=== PATIENT | female | born 1995 | race Caucasian/White ===

== ENCOUNTER 2016-10-01 17:08 | Emergency (ER) | payer OTHER ==
[2016-10-01 17:38] VITALS: BP 111/87; PULSE 101; TEMP 98.5; BMI 21.9
[2016-10-01] MEDS ORDERED: DEXAMETHASONE SOD PHOSPHATE 10 MG/1 ML VIAL IM ONE (19:13)
--- NOTE | 2016-10-01 19:25 | PDOC ---
History of Present Illness - General Chief Complaint: Shortness of Breath Stated Complaint: Shortness of Breath Time Seen by Provider: 10/01/16 19:01 History Source: Patient Exam Limitations: No Limitations - History of Present Illness Initial Comments: 10/01/16 19:20 CC REDNESS AND SWELLING TO UVULA X 1 DAY; POST ENDOSCOPY X 1 DAY 10/01/16 21:13 Timing/Duration: reports: 1-3 hours, 4-6 hours Severity: Yes: mild Presenting Symptoms: No: fever, red eyes, ear pain, runny nose Past History - Past History Allergies/Adverse Reactions: Allergies No Known Allergies Allergy (Verified 10/01/16 17:35) - Social History Smoking Status: Never smoked Review of Systems - Review of Systems Constitutional: Yes: Chills. No: Fever, Malaise HEENTM: Yes: Symptoms Reported, Throat Pain Respiratory: Yes: Cough. No: Symptoms reported Cardiac (ROS): No: Symptoms Reported ABD/GI: No: Symptoms Reported Integumentary: Yes: Other ( small laceration) *Physical Exam - Vital Signs Last Vital Signs Temp Pulse Resp BP Pulse Ox 98.5 F 101 H 18 111/87 100 10/01/16 17:36 10/01/16 17:36 10/01/16 17:36 10/01/16 17:36 10/01/16 17:36 - Physical Exam General Appearance: Yes: Appropriately Dressed. No: Apparent Distress HEENT: positive: TMs Normal, Other (UVULA SWOLLEN WITH WHIT MUCOUS ON TIP). negative: Pharynx Normal, Rhinorrhea Neck: positive: Supple. negative: Tender, Rigid, Lymphadenopathy (R), Lymphadenopathy (L) Respiratory/Chest: positive: Lungs Clear Cardiovascular: positive: Regular Rhythm, Regular Rate Extremity: positive: Other (>5 cm laceration to posterior parietal area scalp, no bone deformity) Medical Decision Making - Medical Decision Making 10/01/16 21:16 WILL TREAT WITH DECADRON AND AUGMENTIN POST *DC/Admit/Observation/Transfer Diagnosis at time of Disposition: Uvulitis - Discharge Dispostion Disposition: HOME Condition at time of disposition: Stable Admit: No - Patient Instructions Additional Instructions: GARGLE WITH WARM WATER; PLEASE CONTACT MD WHO DID ENDOSCOPY FOR FOLLOW UP ON INCIDENT
[2016-10-01] MEDS ORDERED: DEXAMETHASONE SOD PHOSPHATE 10 MG/1 ML VIAL ONE (21:01)
== END 2016-10-01 21:36 | disposition home or self-care (01) ==
LOC: JERFT 17:08 → JER 17:08 → JERFT 21:36
PROC: 3E023GC Introduction of Other Therapeutic Substance into Muscle, Percutaneous Approach (ICD-10-PCS; principal; 2016-10-01)
DX: K12.2 Cellulitis and abscess of mouth (principal)
CPT/HCPCS: 84703; 87070; 87430; 96372; 99281-25

== ENCOUNTER → 2017-06-03 | Day surgery (SDC) | payer OTHER ==
--- NOTE | 2017-06-04 17:12 | PATH ---
Cytology Non-Gynecological Report Patient Name: TAJ COLON [facility]. Rec. #: [id number] /Age/Gender: 1995 (Age: 22) / F Account: [id number] Location: RADIOLOGY [facility] Taken: 06/03/2017 Received: 06/03/2017 Reported: 06/04/2017 Physicians: Tegan Garza M.D. Specimen(s) Received LEFT THYROID FNA Clinical History Left thyroid nodule, 2.06 x 1.38 x 1.14 cm Final Diagnosis THYROID, LEFT, FINE NEEDLE ASPIRATION: UNSATISFACTORY FOR EVALUATION BETHESDA CLASS I: CYSTIC THYROID LESION WITH MACROPHAGES MACROPHAGES AND SCANT THIN COLLOID PRESENT. Electronically Signed Joana Lomeli M.D. Gross Description Received are eight direct smears, four of which are air-dried and Diff-Quik stained, and four of which are alcohol fixed and Pap stained. Also received is 20 ml of brown colored fluid in formalin from which one cellblock is prepared.
== END | disposition home or self-care (01) ==
LOC: JRADIR 08:44
PROVIDERS: ATTEND Specialist
PROC: 0G9G3ZX Drainage of Left Thyroid Gland Lobe, Percutaneous Approach, Diagnostic (ICD-10-PCS; principal; 2017-06-03)
DX: E04.1 Nontoxic single thyroid nodule (principal)
CPT/HCPCS: 76942; 88173; 88305-TC

== ENCOUNTER 2017-06-26 12:23 | Emergency (ER) | payer OTHER ==
[2017-06-26 12:32] VITALS: BP 140/95; PULSE 104; TEMP 98.4; BMI 42.3
--- NOTE | 2017-06-26 12:59 | PDOC ---
History of Present Illness - General Chief Complaint: Asthma Stated Complaint: ASTHMA Time Seen by Provider: 06/26/17 12:44 History Source: Patient Exam Limitations: No Limitations Past History - Travel Traveled outside of the country in the last 30 days: No Close contact w/someone who was outside of country & ill: No - Past Medical History Allergies/Adverse Reactions: Allergies Allergy/AdvReac Type Severity Reaction Status Date / Time No Known Allergies Allergy Verified 06/26/17 12:27 Home Medications: Ambulatory Orders Albuterol 0.083% Nebulizer Cynthia [Ventolin 0.083% Nebulizer Soln -] 1 neb NEB Q4H #20 vial 06/26/17 predniSONE [Deltasone -] 40 mg PO DAILY #8 tablet 06/26/17 Asthma: Yes COPD: No Thyroid Disease: Yes (NODULE/BIOPSY) - Suicide/Smoking/Psychosocial Hx Smoking History: Never smoked Information on smoking cessation initiated: No Hx Alcohol Use: No Drug/Substance Use Hx: No Substance Use Type: None Review of Systems - Review of Systems Able to Perform ROS?: Yes Comments:: 06/26/17 12:55 CONSTITUTIONAL: Absent: fever, chills, diaphoresis, generalized weakness, malaise, loss of appetite HEENT: Absent: rhinorrhea, nasal congestion, throat pain, throat swelling, difficulty swallowing, mouth swelling, ear pain, eye pain, visual Changes CARDIOVASCULAR: Absent: chest pain, loss of consciousness, palpitations, irregular heart rate, peripheral edema RESPIRATORY: Present: cough, wheezing Absent: shortness of breath, dyspnea with exertion, orthopnea, stridor, hemoptysis GASTROINTESTINAL: Absent: abdominal pain, abdominal distension, nausea, vomiting, diarrhea, constipation, melena, hematochezia GENITOURINARY: Absent: dysuria, frequency, urgency, hesitancy, hematuria, flank pain, genital pain MUSCULOSKELETAL: Absent: myalgia, arthralgia, joint swelling SKIN: Absent: rash, itching, pallor HEMATOLOGIC/IMMUNOLOGIC: Absent: easy bleeding, easy bruising, lymphadenopathy, frequent infections ENDOCRINE: Absent: unexplained weight gain, unexplained weight loss, heat intolerance, cold intolerance NEUROLOGIC: Absent: headache, focal weakness or paresthesias, dizziness, unsteady gait, seizure, mental status changes, bladder or bowel incontinence PSYCHIATRIC: Absent: anxiety, depression, suicidal or homicidal ideation, hallucinations. Is the patient limited Urdu proficient: No *Physical Exam - Vital Signs Last Vital Signs Temp Pulse Resp BP Pulse Ox 98.4 F 104 H 18 140/95 100 06/26/17 12:28 06/26/17 12:28 06/26/17 12:28 06/26/17 12:28 06/26/17 12:28 - Physical Exam Comments: 06/26/17 12:59 GENERAL: Well developed, well nourished. Awake and alert. No acute distress. HEENT: Normocephalic, atraumatic. PERRLA, EOMI. No conjunctival pallor. Sclera are non- icteric. Moist mucous membranes. Oropharynx is clear. NECK: Supple. Full ROM. No JVD. Carotid pulses 2+ and symmetric, without bruits. No thyromegaly. No lymphadenopathy. CARDIOVASCULAR: Regular rate and rhythm. No murmurs, rubs, or gallops. Distal pulses are 2+ and symmetric. PULMONARY: No evidence of respiratory distress. Lungs clear to auscultation bilaterally. No wheezing, rales or rhonchi. ABDOMINAL: Soft. Non-tender. Non-distended. No rebound or guarding. No organomegaly. Normoactive bowel sounds. MUSCULOSKELETAL Normal range of motion at all joints. No bony deformities or tenderness. No CVA tenderness. EXTREMITIES: No cyanosis. No clubbing. No edema. No calf tenderness. SKIN: Warm and dry. Normal capillary refill. No rashes. No jaundice. NEUROLOGICAL: Alert, awake, appropriate. Cranial nerves 2-12 intact. No deficits to light touch and temperature in face, upper extremities and lower extremities. No motor deficits in the in face, upper extremities and lower extremities. Normoreflexic in the upper and lower extremities. Normal speech. Toes are down- going bilaterally. Gait is normal without ataxia. PSYCHIATRIC: Cooperative. Good eye contact. Appropriate mood and affect. *DC/Admit/Observation/Transfer Diagnosis at time of Disposition: Bronchitis - Discharge Dispostion Disposition: HOME Condition at time of disposition: Stable Admit: No - Prescriptions Prescriptions: Albuterol 0.083% Nebulizer Cynthia [Ventolin 0.083% Nebulizer Soln -] 1 neb NEB Q4H #20 vial predniSONE [Deltasone -] 40 mg PO DAILY #8 tablet - Referrals Referrals: Demetra,Ammir, MD [Primary Care Provider] - - Patient Instructions Printed Discharge Instructions: DI for Acute Bronchitis Additional Instructions: You have bronchitis. Please continue taking her antibiotics as prescribed by your doctor. Please take the prednisone as directed on the package for the next 4 days. Please use your albuterol every 4 hours to the nebulizer as needed for difficulty breathing You may use your nasal spray twice a day to help with her earaches and dizziness. Please follow-up with your doctor this week. Return to the emergency department if you have increased difficulty breathing, shortness of breath, or have any changes in your symptoms. - Post Discharge Activity
[2017-06-26] MEDS ORDERED: predniSONE 20 MG TABLET (UD) PO ONE (13:04)
[2017-06-26] MEDS ORDERED: predniSONE 20 MG TABLET (UD) ONE (13:06)
[2017-06-26] MEDS ORDERED: ALBUTEROL SO4 2.5/IPRATROPIUM 0.5 INH SOL 3 ML VIAL.NEB. NEB ONE (13:06)
[2017-06-26] MEDS ORDERED: ONDANSETRON *ODT* 4 MG TABLET SL ONE (13:24)
[2017-06-26] MEDS ORDERED: ONDANSETRON *ODT* 4 MG TABLET ONE (13:27)
[2017-06-26] MEDS: ALBUTEROL SO4 2.5/IPRATROPIUM 0.5 INH SOL 3 ML VIAL.NEB. NEB SCH ×2 (13:28→13:37)
== END 2017-06-26 15:37 | disposition home or self-care (01) ==
LOC: JERFT 12:23
PROC: 3E0F7GC Introduction of Other Therapeutic Substance into Respiratory Tract, Via Natural or Artificial Opening (ICD-10-PCS; principal; 2017-06-26)
DX: J40 Bronchitis, not specified as acute or chronic (principal); E07.9 Disorder of thyroid, unspecified
CPT/HCPCS: 99281-25; J7620; Q0162

== ENCOUNTER 2017-12-19 17:22 | Emergency (ER) | payer OTHER ==
[2017-12-19 17:34] VITALS: BMI 42.4
--- NOTE | 2017-12-19 17:35 | PDOC ---
Rapid Medical Evaluation Time Seen by Provider: 12/19/17 17:30 Medical Evaluation: Allergies Allergy/AdvReac Type Severity Reaction Status Date / Time No Known Allergies Allergy Verified 06/26/17 12:27 12/19/17 17:30 Pt presents to the ED for one month of worsening abdominal pain, nausea, and vomiting. Pain is mostly in the LLQ, now radiating to the RLQ. States that she has not had a bowel movement in 2 weeks. States she vomits after eating. Exam: NAD, ambulatory, TTP of the LLQ Orders: Labs, urine, IV Pt to proceed to ED for further evaluation Discharge Disposition - Diagnosis Abdominal pain Qualifiers: Abdominal location: left lower quadrant Qualified Code(s): R10.32 - Left lower quadrant pain - Referrals - Patient Instructions - Post Discharge Activity
[2017-12-19 18:34] LABS: BASO % 0.2 % (0-2.0); EOS % 0.7 % (0-4.5); HEMATOCRIT 41.4 % (32.4-45.2); HEMOGLOBIN 13.9 GM/dL (10.7-15.3); MCH 29.4 pg (25.7-33.7); MCHC 33.5 g/dl (32.0-36.0); MEAN CELL VOLUME 87.7 fl (80-96); MEAN PLT VOLUME 8.9 fl (7.5-11.1); MONO % 7.6 % (3.8-10.2); NEUT % 56.5 % (42.8-82.8); PLATELET COUNT 229 K/MM3 (134-434); RBC 4.72 M/mm3 (3.60-5.2); RDW 13.7 % (11.6-15.6); WHITE BLOOD COUNT 7.5 K/mm3 (4.0-10.0)
[2017-12-19 18:46] LABS: INR 1.15 (0.83-1.09); PROTHROMBIN TIME (PATIENT) 13.6 SEC (9.7-13.0)
--- NOTE | 2017-12-19 18:47 | PDOC ---
History of Present Illness - General Chief Complaint: Pain, Acute Stated Complaint: NAUSEA Time Seen by Provider: 12/19/17 17:30 History Source: Patient Exam Limitations: No Limitations - History of Present Illness Initial Comments: 12/19/17 18:39 Pt is a 22yo f with PMH of asthma presenting to ED with complaints of abdominal pain [id number] and no bowel movements [id number]. Pt also reported not passing gas. Pain is LLQ radiates to RLQ intermittent but getting worse, sharp, 9/10, not alleviated or aggrevated. Associated with nausea and occasional vomiting (nbnb) . She states that her last bm had blood. She went to a GI doctor yesterday and was told she has internal hemarrhoids and IBS and given Linzess but insurance would not cover it. She had an elective around 1.5 years ago. No abdominal surgeries. LMP 1 month ago. Denies fever, chills, sob, chest pain, urinary symptoms, headache. PMD: Demetra GI: Kozicky PMH: asthma PSH: none Meds: none Social: denies Allergies: nkda Past History - Past Medical History Allergies/Adverse Reactions: Allergies Allergy/AdvReac Type Severity Reaction Status Date / Time No Known Allergies Allergy Verified 12/19/17 17:31 Home Medications: Ambulatory Orders NK [No Known Home Medication] 12/19/17 Asthma: Yes COPD: No Thyroid Disease: Yes (NODULE/BIOPSY) - Suicide/Smoking/Psychosocial Hx Smoking History: Never smoked Hx Alcohol Use: No Drug/Substance Use Hx: No Substance Use Type: None Review of Systems - Review of Systems Able to Perform ROS?: Yes Constitutional: No: Chills, Loss of Appetite HEENTM: No: Symptoms Reported Respiratory: No: Cough, Shortness of Breath Cardiac (ROS): Yes: Lightheadedness. No: Chest Pain, Syncope ABD/GI: Yes: Abdominal Distended, Constipated, Nausea, Vomiting, Abdominal cramping. No: Diarrhea, Rectal Bleeding : No: Symptoms Reported Musculoskeletal: No: Symptoms Reported Integumentary: No: Symptoms Reported Neurological: No: Symptoms reported *Physical Exam - Vital Signs Last Vital Signs Temp Pulse Resp BP Pulse Ox 98 F 104 H 18 138/85 100 12/19/17 17:31 12/19/17 17:31 12/19/17 17:31 12/19/17 17:31 12/19/17 17:31 - Physical Exam General Appearance: Yes: Appropriately Dressed, Obese. No: Apparent Distress HEENT: positive: EOMI, CAMILA, Normal ENT Inspection Neck: positive: Trachea midline. negative: Lymphadenopathy (R), Lymphadenopathy (L) Respiratory/Chest: positive: Lungs Clear, Normal Breath Sounds. negative: Crackles, Rales, Rhonchi, Stridor, Wheezing Cardiovascular: positive: Regular Rhythm, Tachycardia. negative: S1, S2, Edema , JVD Vascular Pulses: Carotid (R): 2+, Carotid (L): 2+, Dorsalis-Pedis (R): 2+, Doralis-Pedis (L): 2+ Gastrointestinal/Abdominal: positive: Normal Bowel Sounds, Tender (diffuse, greatest in LLQ. negative psoas sign. ), Soft, Distended. negative: Guarding, Rebound Musculoskeletal: negative: CVA Tenderness Extremity: positive: Normal Capillary Refill. negative: Pedal Edema, Swelling Integumentary: positive: Normal Color, Dry, Warm Neurologic: positive: metal cleaner II-XII NML intact, Fully Oriented, Alert, Normal Mood/ Affect, Normal Response, Motor Strength 5/5 ED Treatment Course - LABORATORY CBC & Chemistry Diagram: 12/19/17 18:26 12/19/17 18:08 Medical Decision Making - Medical Decision Making 12/19/17 19:33 Pt is a 22yo f with PMH of asthma presenting to ED with complaints of abdominal pain [id number] and no bowel movements [id number]. Vitals: tachycardia, otherwise wnl PE: diffuse abdominal tenderness in all qudrants, greatest in LLQ. Pt appeared comfortabe and well. Pt passed gas in ED. DDx: sbo, constipation, colitis Low suspicion for colitis or infectious process due to constipation, no diarrhea , no fevers. Low suspicion for ovarian causes due to lack of complaints, symptoms have been going on for 1 month. Low suspicion for SBO given pt had passed gas in ED and saw GI yesterday. CBC, cmp, lipase, ua and upreg ordered by triage. If upreg negative, will order abdomen xray. xray ordered. Pt signed out to Dr. Palomino *DC/Admit/Observation/Transfer Diagnosis at time of Disposition: Abdominal pain Qualifiers: Abdominal location: left lower quadrant Qualified Code(s): R10.32 - Left lower quadrant pain Constipation Qualifiers: Constipation type: unspecified constipation type Qualified Code(s): K59.00 - Constipation, unspecified - Referrals Referrals: Nona Mccrary MD [Primary Care Provider] - - Patient Instructions - Post Discharge Activity
--- NOTE | 2017-12-19 18:47 | PDOC ---
Attending Attestation - HPI HPI: 12/19/17 19:19 "The patient is a 22-year-old female with past medical history significant for asthma and prior hx of constipation presents to the emergency department with constipation and abdominal pain. The patient presents with a month of LLQ abdominal pain, nausea, and fatigue. The patient reports associated concern of 2 weeks of constipation, states it feels like its stuck there. The patient reports 3-4 weeks prior she had an episode of blood in the stool. The patient reports following up with a GI doctor in the past, who diagnosed the patient with IBS. The patient reports in the past she was diagnosed with internal hemorrhoid. Denies fever, chills, cough, chest pain, shortness of breath, melena, urinary symptoms. Allergies: NKA Social history: No past or present use of tobacco, alcohol or recreational drugs. Surgical history: Endoscopy PCP: Dr. Mccrary. " - Medical Decision Making 12/19/17 19:19 Documentation prepared by Mis Manuel, acting as medical planner for Pavel Voss MD. <Mis Manuel - Last Filed: 12/19/17 19:19> - Medical Decision Making 12/19/17 21:48 Received signout on the patient and she appears well. She understands that her left sided abd pain is due to the gas in her bowel. We discussed the importance of exercise in helping treat constipation. She will also drink more water and eat more vegetables and probiotic. Pt has normal labs and normal exam. She will be discharged after IV hydration. <Kajal Lima - Last Filed: 12/19/17 21:48> - Resident Resident Name: Isidra Gibbs - ED Attending Attestation I have performed the following: I have examined & evaluated the patient, The case was reviewed & discussed with the resident, I agree w/resident's findings & plan, Exceptions are as noted - Physicial Exam PE: 12/19/17 19:24 on exam: general: no acute distress abd: abd soft, mild L abd tenderness, no CVA tenderness - Medical Decision Making 12/19/17 18:41 22y F hx of asthma oresents with 1 month of LLQ pain that radiates to the right , intermittent, sharp, associated with nausea and occasional vomiting, notes she is eating but not having good bm and hasnt had too much gas (did pass katie here in the ED though). was dx with IBS by GI and was started on linzenz but pt was unable to afford it. suspect constipation due to her well appearance will ck basic labs abd xray will reassess, anticipate fu with GI 12/19/17 19:39 case signed out to dr. lima and evening team to fu and reassess A portion of this note was documented by scribe services under my direction. I have reviewed the details of the note, within reason, and agree with the documentation with the following case summary and management plan written by me <Pavel Voss - Last Filed: 12/20/17 10:07>
[2017-12-19 19:03] LABS: ALBUMIN 3.6 g/dl (3.4-5.0); ALK PHOS 98 U/L (45-117); ANION GAP 9 MMOL/L (8-16); BILIRUBIN,TOTAL 0.4 mg/dL (0.2-1); BLOOD UREA NITROGEN 8 mg/dL (7-18); CALCIUM 8.5 mg/dL (8.5-10.1); CHLORIDE 109 mmol/L (98-107); CO2 24 mmol/L (21-32); CREATININE 0.6 mg/dL (0.55-1.3); GLUCOSE,RANDOM 73 mg/dL (74-106); POTASSIUM 3.9 mmol/L (3.5-5.1); SGOT/AST 14 U/L (15-37); SGPT/ALT 20 U/L (13-61); SODIUM 141 mmol/L (136-145); TOT PROT 7.1 g/dl (6.4-8.2)
[2017-12-19 19:42] VITALS: BP 128/74; PULSE 96; TEMP 97.7
--- NOTE | 2017-12-19 20:16 | PDOC ---
*Physical Exam - Vital Signs Last Vital Signs Temp Pulse Resp BP Pulse Ox 97.7 F 96 H 18 128/74 100 12/19/17 19:34 12/19/17 19:34 12/19/17 17:31 12/19/17 19:34 12/19/17 17:31 <Kajal Sears - Last Filed: 12/19/17 21:21> - Vital Signs Last Vital Signs Temp Pulse Resp BP Pulse Ox 97.7 F 96 H 18 128/74 100 12/19/17 19:34 12/19/17 19:34 12/19/17 17:31 12/19/17 19:34 12/19/17 17:31 - Physical Exam General Appearance: Yes: Appropriately Dressed HEENT: positive: EOMI Neck: positive: Normal Thyroid Respiratory/Chest: positive: Lungs Clear, Normal Breath Sounds Cardiovascular: positive: Regular Rhythm, Regular Rate, S1, S2 Vascular Pulses: Carotid (R): 2+, Carotid (L): 2+ Extremity: positive: Normal Inspection Neurologic: positive: sales project manager II-XII NML intact <Vida Palomino - Last Filed: 12/19/17 22:16> ED Treatment Course - LABORATORY CBC & Chemistry Diagram: 12/19/17 18:26 12/19/17 18:08 - ADDITIONAL ORDERS Additional order review: Laboratory Results 12/19/17 12/19/17 12/19/17 18:35 18:26 18:08 PT with INR 13.60 H INR 1.15 H Sodium Potassium Chloride Carbon Dioxide Anion Gap BUN Creatinine Creat Clearance w eGFR Random Glucose Calcium Total Bilirubin AST ALT Alkaline Phosphatase Total Protein Albumin Lipase 101 Urine HCG, Qual Negative 12/19/17 18:08 PT with INR INR Sodium 141 Potassium 3.9 Chloride 109 H Carbon Dioxide 24 Anion Gap 9 BUN 8 Creatinine 0.6 Creat Clearance w eGFR > 60 Random Glucose 73 L Calcium 8.5 Total Bilirubin 0.4 AST 14 L ALT 20 Alkaline Phosphatase 98 Total Protein 7.1 Albumin 3.6 Lipase Urine HCG, Qual 12/19/17 18:26 RBC 4.72 MCV 87.7 MCHC 33.5 RDW 13.7 MPV 8.9 Neutrophils % 56.5 Lymphocytes % 35.0 Monocytes % 7.6 Eosinophils % 0.7 Basophils % 0.2 - Medications Given in the ED: ED Medications Discontinued Medications Generic Name Dose Route Start Last Admin Trade Name Geetha PRN Reason Stop Dose Admin Polyethylene Glycol 17 gm 12/19/17 20:23 12/19/17 21:14 Miralax (For Daily Use) - PO 12/19/17 20:24 17 g ONCE ONE Administration Sodium Chloride 1,000 ml 12/19/17 20:23 12/19/17 21:15 Normal Saline - IV 12/19/17 20:24 1,000 ml ONCE ONE Administration <Kajal Sears - Last Filed: 12/19/17 21:21> - LABORATORY CBC & Chemistry Diagram: 12/19/17 18:26 12/19/17 18:08 - ADDITIONAL ORDERS Additional order review: Laboratory Results 12/19/17 12/19/17 12/19/17 18:35 18:26 18:08 PT with INR 13.60 H INR 1.15 H Sodium Potassium Chloride Carbon Dioxide Anion Gap BUN Creatinine Creat Clearance w eGFR Random Glucose Calcium Total Bilirubin AST ALT Alkaline Phosphatase Total Protein Albumin Lipase 101 Urine HCG, Qual Negative 12/19/17 18:08 PT with INR INR Sodium 141 Potassium 3.9 Chloride 109 H Carbon Dioxide 24 Anion Gap 9 BUN 8 Creatinine 0.6 Creat Clearance w eGFR > 60 Random Glucose 73 L Calcium 8.5 Total Bilirubin 0.4 AST 14 L ALT 20 Alkaline Phosphatase 98 Total Protein 7.1 Albumin 3.6 Lipase Urine HCG, Qual 12/19/17 18:26 RBC 4.72 MCV 87.7 MCHC 33.5 RDW 13.7 MPV 8.9 Neutrophils % 56.5 Lymphocytes % 35.0 Monocytes % 7.6 Eosinophils % 0.7 Basophils % 0.2 <Vida Palomino - Last Filed: 12/19/17 22:16> Medical Decision Making - Medical Decision Making 12/19/17 20:15 This is a 22 year old female with a recently diagnosed Irritable bowel syndrome by her metrology technician, presents with abdominal pain and constipation. She was prescribed linzess but have not been taking it yet. She has not had a bowel movement in two weeks. She is currently here passing gas. Will give IVF and stool softener. Abdominal xray showing large stool. NO signs of obstruction or acute pathology. Will dc home after fluids. Advise continue to take stool softener and prescribed medication. 12/19/17 20:44 <Vida Palomino - Last Filed: 12/19/17 22:16> *DC/Admit/Observation/Transfer - Discharge Dispostion Decision to Admit order: No <Kajal Sears - Last Filed: 12/19/17 21:21> - Discharge Dispostion Decision to Admit order: No <Vida Palomino - Last Filed: 12/19/17 22:16> Diagnosis at time of Disposition: Gas pain Abdominal pain Qualifiers: Abdominal location: left lower quadrant Qualified Code(s): R10.32 - Left lower quadrant pain Constipation Qualifiers: Constipation type: unspecified constipation type Qualified Code(s): K59.00 - Constipation, unspecified - Discharge Dispostion Disposition: HOME Condition at time of disposition: Improved - Referrals Referrals: Nona Mccrary MD [Primary Care Provider] - - Patient Instructions Printed Discharge Instructions: Constipation, DI for Dyspepsia Additional Instructions: Ms Granados, you have been diagnosed with Irritable bowel and constipation. Please continue to take your prescribed medications. Stay hydrated. If you experience any worsening of symptoms, please return to the emergency room. - Post Discharge Activity Forms/Work/School Notes: Back to Work
[2017-12-19] MEDS ORDERED: SODIUM CHLORIDE 0.9% 500 ML INFUS.BAG IV ONE (20:23)
[2017-12-19] MEDS ORDERED: POLYETHYLENE GLYCOL 3350 119 GM BTL PO ONE (20:23)
[2017-12-19] MEDS ORDERED: ONDANSETRON 4 MG TABLET PO ONE (21:01)
[2017-12-19] MEDS ORDERED: ONDANSETRON *ODT* 4 MG TABLET ONE (21:04)
[2017-12-19] MEDS ORDERED: MAG HYDROX/AL HYDROX/SIMETH 30 ML UNIT-DOSE CUP PO ONE (21:20)
[2017-12-19 23:13] LABS: URINE APPEARANCE SLCLOUDY; URINE BILIRUBIN NEGATIVE (<2.0 mg/dL); URINE COLOR YELLOW; URINE GLUCOSE (UA) NEGATIVE (NEGATIVE); URINE KETONE 2+ (NEGATIVE); URINE LEUK ESTERASE NEGATIVE (NEGATIVE); URINE NITRITE NEGATIVE (NEGATIVE); URINE PROTEIN 2+ (NEGATIVE); URINE UROBILINOGEN NEGATIVE mg/dL (0.2-1.0)
[2017-12-19 23:18] LABS: EPI CELLS FEW /HPF (FEW); URINE BACTERIA RARE /hpf (NONE SEEN); URINE MUCUS RARE
== END 2017-12-19 21:55 | disposition home or self-care (01) ==
LOC: JER 17:22
DX: K59.00 Constipation, unspecified (principal); R14.1 Gas pain
CPT/HCPCS: 36415; 74018-TC-FY; 80053; 81003; 81015; 83690; 84703; 85025; 85610; 87086; 99284-25

== ENCOUNTER 2018-08-10 06:40 | Inpatient (IN) | payer OTHER ==
[2018-08-05 11:56] VITALS: BMI 42.3
[~2018-08-10 06:40] MED LIST: BUPIVACAINE HCL/PF 0.25% (2.5MG/ML) 10 ML VIAL IJ ONE
--- NOTE | 2018-08-10 10:06 | HP ---
Admitting History and Physical - Admission Chief Complaint: Morbid obesity - Past Medical History Pulmonary: Yes: Asthma ...LMP: 07/30/18 ...: No - Past Surgical History Additional Past Surgical History: Dilation and curretage - Smoking History Smoking history: Never smoked - Alcohol/Substance Use Hx Alcohol Use: No Home Medications - Allergies Allergies/Adverse Reactions: Allergies Allergy/AdvReac Type Severity Reaction Status Date / Time No Known Allergies Allergy Verified 12/19/17 17:31 - Home Medications Home Medications: Ambulatory Orders Albuterol Sulfate Inhaler - [Ventolin Hfa Inhaler -] 1 - 2 inh PO QID 08/05/18 Famotidine [Pepcid] 20 mg PO BID #60 tablet 08/10/18 Oxycodone HCl/Acetaminophen [Percocet 5-325 mg Tablet] 1 - 2 tab PO Q6H #28 tab MDD 4 08/10/18 Family Disease History - Family Disease History Family History: Unremarkable Review of Systems - Review of Systems Constitutional: denies: Chills, Fever Neck: reports: No Symptoms Cardiovascular: reports: No Symptoms Respiratory: reports: No Symptoms Gastrointestinal: reports: No Symptoms Neurological: reports: No Symptoms Pain Intensity: 0 Physical Examination Vital Signs: Vital Signs Temperature 98.4 F 08/10/18 07:49 Pulse Rate 88 08/10/18 07:49 Respiratory Rate 18 08/10/18 07:49 Blood Pressure 105/77 08/10/18 07:49 O2 Sat by Pulse Oximetry (%) Constitutional: Yes: Calm Neck: Yes: WNL Cardiovascular: Yes: WNL Respiratory: Yes: Regular Gastrointestinal: Yes: Soft, Abdomen, Obese Neurological: Yes: Alert, Oriented Problem List - Problems (1) Morbid obesity due to excess calories Code(s): E66.01 - MORBID (SEVERE) OBESITY DUE TO EXCESS CALORIES (2) BMI 40.0-44.9, adult Code(s): Z68.41 - BODY MASS INDEX (BMI) 40.0-44.9, ADULT Assessment/Plan Laparoscopic possible open vertical sleeve gastrectomy possible liver biopsy, upper endoscopy
[2018-08-10] MEDS ORDERED: MIDAZOLAM HCL 2 MG/2 ML SINGLE DOSE VIAL ONE (10:17)
[2018-08-10] MEDS ORDERED: PROPOFOL 20 ML ONE ×2 (10:21)
[2018-08-10] MEDS ORDERED: SUCCINYLCHOLINE CHLORIDE 200 MG/10 ML VIAL ONE (10:21)
[2018-08-10] MEDS ORDERED: BUPIVACAINE HCL/PF 2.5 MG/ML - 30 ML VIAL IJ ONE (10:22)
[2018-08-10] MEDS ORDERED: DEXAMETHASONE SOD PHOSPHATE 4 MG/1 ML VIAL ONE ×2 (11:07→11:14)
[2018-08-10] MEDS ORDERED: ceFAZolin SODIUM 1 GM VIAL ONE (11:07)
[2018-08-10] MEDS ORDERED: ONDANSETRON 4 MG/2 ML VIAL ONE ×2 (11:07→12:05)
[2018-08-10] MEDS ORDERED: ROCURONIUM BROMIDE 50 MG/5 ML VIAL ONE (11:10)
[2018-08-10] MEDS ORDERED: HYDROmorphone HCL/PF 1 MG/ML AMP ONE (11:38)
[2018-08-10] MEDS ORDERED: BUPIVACAINE HCL/PF 0.25% (2.5MG/ML) 10 ML VIAL IJ ONE (11:53)
[2018-08-10] MEDS ORDERED: NEOSTIGMINE METHYLSULFATE 0.5 MG/ML - 10 ML MDV ONE (11:59)
[2018-08-10] MEDS ORDERED: ONDANSETRON 4 MG/2 ML VIAL IVPUSH PRN (12:27)
--- NOTE | 2018-08-10 12:29 | OP ---
Operative Note - Note: Operative Date: 08/10/18 Pre-Operative Diagnosis: Morbid obesity Operation: Laparoscopic vertical sleeve gastrectomy Post-Operative Diagnosis: Same as Pre-op Surgeon: Ancelmo Amanda Insurance Office Manager: Monty Karimi Anesthesia: General Specimens Removed: Greater curvature of stomach Estimated Blood Loss (mls): 30 Drains & Tubes with Location: 36 Fr Bougie Operative Report Dictated: Yes
[2018-08-10] MEDS: METOCLOPRAMIDE HCL INJECTION 10 MG/2 ML VIAL IVPUSH SCH ×2 (12:30→18:36)
[2018-08-10] MEDS ORDERED: FAMOTIDINE 20 MG/50 ML IVPB 20 MG/50 ML MG IVPB ONE (12:30)
[2018-08-10] MEDS ORDERED: LACTATED RINGERS SOLUTION 1,000 ML IV SCH (12:30)
[2018-08-10] MEDS ORDERED: SODIUM CHLORIDE 1,000 ML IV SCH (12:30)
[2018-08-10] MEDS ORDERED: FAMOTIDINE 20 MG PREMIXED IVPB IVPB ONE (12:35)
[2018-08-10] MEDS: ACETAMINOPHEN 1000 MG/100 ML VIAL (NON FORMULARY) IVPB SCH ×2 (12:38→18:36)
[2018-08-10 12:58] LABS: HEMATOCRIT 39.2 % (32.4-45.2); HEMOGLOBIN 12.8 GM/dl (10.7-15.3); MCHC 32.6 g/dl (32.0-36.0); MEAN PLT VOLUME 9.4 fl (7.5-11.1); PLATELET COUNT 231 K/MM3 (134-434); RBC 4.41 M/mm3 (3.60-5.2); RDW 12.7 % (11.6-15.6); WHITE BLOOD COUNT 11.6 K/mm3 (4.0-10.8)
[2018-08-10 13:04] LABS: ALBUMIN 3.5 g/dl (3.4-5.0); BILIRUBIN,TOTAL 0.3 mg/dl (0.2-1); CALCIUM 8.3 mg/dl (8.5-10); CREATININE 0.7 mg/dl (0.55-1.3); POTASSIUM 3.5 mmol/L (3.5-5.1); TOT PROT 6.4 g/dl (6.4-8.2)
[2018-08-10] MEDS: ALBUTEROL SO4 8 GM HFA INHALER IH SCH ×3 (16:00→21:27)
[2018-08-10] MEDS: ONDANSETRON 4 MG/2 ML VIAL IVPUSH SCH ×2 (16:59→21:27)
[2018-08-10] MEDS ORDERED: ALBUTEROL SO4 0.083% IH SOL 2.5 MG/3 ML VIAL.NEB. NEB ONE (19:45)
[2018-08-10] MEDS: HYDROmorphone HCL CARPU-JECT 2 MG/1 ML DISP.SYRIN IVPB PRN (20:30)
[2018-08-10] MEDS: FAMOTIDINE 20 MG/50 ML IVPB 20 MG/50 ML MG IVPB SCH (21:26)
[2018-08-10] MEDS: ENOXAPARIN NA (PORCINE) 40 MG/0.4 ML DISP.SYRIN SQ SCH (21:27)
--- NOTE | 2018-08-10 21:32 | SPEC ---
DATE OF OPERATION: 08/10/2018 SURGEON: Melody Amanda MD TOBACCO STRIPPER HAND: Monty Karimi MD [facility] PREOPERATIVE DIAGNOSIS: 1. Morbid obesity. 2. Body mass index 42.3. POSTOPERATIVE DIAGNOSIS: 1. Morbid obesity. 2. Body mass index 42.3. PROCEDURE: 1. Diagnostic laparoscopy. 2. Laparoscopic vertical sleeve gastrectomy. SPECIMEN: Greater curvature of the stomach. ESTIMATED BLOOD LOSS: 30 mL. DRAINS: None. ANESTHESIA: GET. BOUGIE SIZE: 36 [place]. REASON FOR PROCEDURE: This is a 23-year-old female who presented to the office for weight loss options. After describing the different options, she decided to proceed laparoscopic, possible open, vertical sleeve gastrectomy, possible liver biopsy, upper endoscopy. RISKS AND BENEFITS: After describing the different options for weight loss management, the patient decided to proceed with a laparoscopic, possible open vertical sleeve gastrectomy. The patient was seen by the respective subspecialties and cleared for surgery. The risks and benefits of the procedure were explained. These included bleeding, infection, hernia, ME, DVT, PE, injury to surrounding structures including the liver, colon, bowel, spleen, esophagus, vessel injury, nerve injury, weight regain, gastric leak, staple line leak, sleeve leak, obstruction, vitamin deficiency, hair loss, and as some of the possible complications. The patient understood and signed informed consent. DESCRIPTION OF PROCEDURE: The patient was placed supine on the operating room table. The patient underwent general endotracheal intubation. The arms were brought out at 90 degrees and secured. A foot board was placed, and the legs were secured laterally with padding. The abdomen was prepped and draped in the usual sterile fashion. A timeout was performed. An incision was made in the left upper quadrant, and a Veress needle inserted. Pneumoperitoneum was established. Subsequently, the Veress needle was removed, and a 5-mm trocar was placed under direct visualization with the laparoscope. The laparoscopic camera was inserted, and inspection of the abdominal cavity was performed. An incision was made in the supraumbilical region, and a 15-mm trocar placed under direct visualization. A 5-mm trocar was then placed in the right upper quadrant, and a 5-mm trocar placed below the left subcostal margin. A stab wound was made in the subxiphoid area, and a Tiffanie clamp inserted and removed to dilate the tract. A Calvin liver retractor was inserted. The post was secured at the bedside by the nursing staff. The patient was placed in steep reverse Trendelenburg position. The Calvin liver retractor was used to secure the liver towards the anterior abdominal wall. The pylorus was identified and 6 cm proximal to it, the lesser sac was entered using the Ligasure device. All lateral attachments to the greater curvature of the stomach including the short gastric vessels were ligated using the Ligasure device toward the gastrosplenic and gastrophrenic ligaments. Once this was done in its entirety, it was confirmed that all tubes within the nasal or oropharyngeal cavity including a temperature probe were removed by Anesthesia. The bougie was then inserted by Anesthesia. Transection of the stomach was then begun staying adjacent to the bougie but away from the angularis. Transection of the stomach was performed near the portion of the stomach where the lesser sac was entered. Two laparoscopic Endo-YURIY black loads were used at this location. Laparoscopic Endo-YURIY purple loads were then used for the remainder of the transection until the greater curvature of the stomach was fully transected. This was done staying close to the bougie. Care was taken to stay away from the angle of His cephalad. The staple line was then inspected. Hemostasis was identified. A leak test was then performed. The stomach was clamped distally to the staple line. Irrigation solution was placed in the left upper quadrant, and air insufflated by Anesthesia into the sleeve. No leaks were identified, and no obstruction was identified. This was done throughout the entirety of the staple line. The stomach was suctioned and the bougie removed fully intact under direct visualization. At this point, the irrigation solution was suctioned, and again hemostasis noted. The 15-mm supraumbilical trocar was then removed, and the specimen removed from the site using a sponge stick hayden. A Aric Nasima device was then used to close the fascia with a 0 Vicryl suture at this site. Again, hemostasis was noted. The Calvin liver retractor was then removed under direct visualization. Pneumoperitoneum was desufflated. Hemostasis was noted at all incision sites, and Marcaine was injected at all incision sites. A 3-0 Vicryl suture was used to close the deep subcutaneous tissue at the 15-mm incision site. All incision sites were closed using 4-0 Biosyn. Sterile dressings were applied. The patient tolerated the procedure well, and was transferred to the recovery room in stable condition. MELODY AMANDA M.D. LEXI/[id number]
[2018-08-11] MEDS: ACETAMINOPHEN 1000 MG/100 ML VIAL (NON FORMULARY) IVPB SCH ×2 (00:24→06:35)
[2018-08-11] MEDS: ONDANSETRON 4 MG/2 ML VIAL IVPUSH SCH ×4 (00:24→13:15)
[2018-08-11] MEDS: ALBUTEROL SO4 8 GM HFA INHALER IH SCH ×5 (04:18→15:23)
[2018-08-11] MEDS: HYDROmorphone HCL CARPU-JECT 2 MG/1 ML DISP.SYRIN IVPB PRN ×3 (04:57→11:45)
[2018-08-11 08:22] LABS: HEMATOCRIT 33.8 % (32.4-45.2); HEMOGLOBIN 11.3 GM/dl (10.7-15.3); MCH 29.3 pg (25.7-33.7); MCHC 33.4 g/dl (32.0-36.0); MEAN CELL VOLUME 87.7 fl (80-96); MEAN PLT VOLUME 9.6 fl (7.5-11.1); PLATELET COUNT 186 K/MM3 (134-434); RBC 3.85 M/mm3 (3.60-5.2); RDW 12.3 % (11.6-15.6); WHITE BLOOD COUNT 9.4 K/mm3 (4.0-10.8)
[2018-08-11 08:24] LABS: ALBUMIN 3.1 g/dl (3.4-5.0); BILIRUBIN,TOTAL 0.5 mg/dl (0.2-1); CALCIUM 7.9 mg/dl (8.5-10); CREATININE 0.5 mg/dl (0.55-1.3); POTASSIUM 3.8 mmol/L (3.5-5.1); TOT PROT 5.7 g/dl (6.4-8.2)
[2018-08-11] MEDS ORDERED: ALBUTEROL SO4 2.5/IPRATROPIUM 0.5 INH SOL 3 ML VIAL.NEB. NEB ONE (08:28)
[2018-08-11] MEDS ORDERED: ALBUTEROL SO4 0.083% IH SOL 2.5 MG/3 ML VIAL.NEB. NEB ONE ×2 (08:28→12:58)
[2018-08-11] MEDS: FAMOTIDINE 20 MG/50 ML IVPB 20 MG/50 ML MG IVPB SCH (10:51)
[2018-08-11] MEDS: ENOXAPARIN NA (PORCINE) 40 MG/0.4 ML DISP.SYRIN SQ SCH (10:51)
[2018-08-11] MEDS: METOCLOPRAMIDE HCL INJECTION 10 MG/2 ML VIAL IVPUSH SCH (13:16)
[2018-08-11 14:28] VITALS: BP 125/72; PULSE 92; TEMP 97.8
[2018-08-11] MEDS ORDERED: oxyCODONE HCL 5 MG TABLET PO PRN (14:41)
--- NOTE | 2018-08-11 14:43 | PN ---
Progress Note (short form) - Note Progress Note: POD 1 Pain/nausea controlled Vital Signs Period Temp Pulse Resp BP Sys/Alvarenga Pulse Ox Last 24 Hr 97.8 F-99.2 F 92-113 18-20 118-136/51-73 96-100 Abd soft CBC,CMP WBC 9.4 K/mm3 (4.0-10.8) 08/11/18 07:29 RBC 3.85 M/mm3 (3.60-5.2) 08/11/18 07:29 Hgb 11.3 GM/dl (10.7-15.3) 08/11/18 07:29 Hct 33.8 % (32.4-45.2) 08/11/18 07:29 MCV 87.7 fl (80-96) 08/11/18 07:29 MCH 29.3 pg (25.7-33.7) 08/11/18 07:29 MCHC 33.4 g/dl (32.0-36.0) 08/11/18 07:29 RDW 12.3 % (11.6-15.6) 08/11/18 07:29 Plt Count 186 K/MM3 (134-434) 08/11/18 07:29 MPV 9.6 fl (7.5-11.1) 08/11/18 07:29 Sodium 136 mmol/L (136-145) 08/11/18 07:29 Potassium 3.8 mmol/L (3.5-5.1) 08/11/18 07:29 Chloride 107 mmol/L (98-107) 08/11/18 07:29 Carbon Dioxide 21 mmol/L (21-32) 08/11/18 07:29 Anion Gap 8 MMOL/L (8-16) 08/11/18 07:29 BUN 5.0 mg/dl (7-18) L 08/11/18 07:29 Creatinine 0.5 mg/dl (0.55-1.3) L 08/11/18 07:29 Est GFR (CKD-EPI)AfAm 155.90 08/11/18 07:29 Est GFR (CKD-EPI)NonAf 134.52 08/11/18 07:29 Random Glucose 97 mg/dl (74-106) 08/11/18 07:29 Calcium 7.9 mg/dl (8.5-10) L 08/11/18 07:29 Total Bilirubin 0.5 mg/dl (0.2-1) 08/11/18 07:29 AST 24 U/L (15-37) 08/11/18 07:29 ALT 27 U/L (13-61) 08/11/18 07:29 Alkaline Phosphatase 58 U/L (45-117) D 08/11/18 07:29 Total Protein 5.7 g/dl (6.4-8.2) L 08/11/18 07:29 Albumin 3.1 g/dl (3.4-5.0) L 08/11/18 07:29 UGI: no leak/obstruction Clears Discharge planning Problem List - Problems (1) Morbid obesity due to excess calories Code(s): E66.01 - MORBID (SEVERE) OBESITY DUE TO EXCESS CALORIES (2) BMI 40.0-44.9, adult Code(s): Z68.41 - BODY MASS INDEX (BMI) 40.0-44.9, ADULT
[2018-08-11] MEDS ORDERED: SODIUM CHLORIDE 1,000 ML IV SCH (14:45)
--- NOTE | 2018-08-12 17:06 | PATH ---
Surgical Pathology Report Patient Name: TAJ COLON Med. Rec. #: [id number] /Age/Gender: 1995 (Age: 23) / F Account: [id number] Location: [facility] MED-SURG Taken: 08/10/2018 Received: 08/10/2018 Reported: 08/12/2018 Physicians: Ancelmo Amanda M.D. Specimen(s) Received GREATER CURVATURE STOMACH Clinical History Morbid obesity Final Diagnosis GREATER CURVATURE OF STOMACH, LAPAROSCOPIC SLEEVE GASTRECTOMY: GASTRIC MUCOSA WITH FOCAL ACTIVE CHRONIC GASTRITIS. IMMUNOSTAIN FOR H. PYLORI IS POSITIVE. NEGATIVE FOR INTESTINAL METAPLASIA. Electronically Signed Dev Caceres M.D. Gross Description Received in formalin, labeled "greater curvature of stomach," is a 110 gram, 20.0 x 3.8 x 3.8 cm. portion of stomach with a stapled margin of resection. The serosa is aquino-becker with minimal attached fat. The mucosa is aquino-pink with normal folds. No mucosal masses are identified. Legal Cashier sections are submitted in one cassette. /08/11/2018 [facility]/08/11/2018
== END 2018-08-11 15:23 | disposition home or self-care (01) | DRG 403 ==
LOC: FM/S 06:40
PROVIDERS: ADMIT Surgery; ATTEND Surgery
PROC: 0WJP4ZZ Inspection of Gastrointestinal Tract, Percutaneous Endoscopic Approach (ICD-10-PCS; 2018-08-10)
PROC: 0DB64Z3 Excision of Stomach, Percutaneous Endoscopic Approach, Vertical (ICD-10-PCS; principal; 2018-08-10 11:09)
DX: E66.01 Morbid (severe) obesity due to excess calories (principal); Z68.41 Body mass index [BMI] 40.0-44.9, adult
CPT/HCPCS: 36415; 74241-TC-FY; 80053; 84703; 85027; 87389; 88305-TC; 94760; J0131; J7030

== ENCOUNTER 2018-09-07 17:56 | Inpatient (IN) | payer OTHER ==
[2018-09-07 18:19] VITALS: BMI 37.9
--- NOTE | 2018-09-07 18:22 | PDOC ---
Rapid Medical Evaluation Chief Complaint: Pain, Acute Time Seen by Provider: 09/07/18 18:13 Medical Evaluation: Allergies Allergy/AdvReac Type Severity Reaction Status Date / Time No Known Allergies Allergy Verified 09/07/18 18:13 09/07/18 18:18 I have performed a brief in-person evaluation of this patient. The patient presents with a chief complaint of: h/o gastric bypass a month ago present with complains of sudden onset of left flank pain radiating to left lower back since this afternoon. report nausea and spitting out phlegm. Denies fever, chills, diarrhea. Denies complication with surgery Pertinent physical exam findings: A&O in moderate distress I have ordered the following: CBC,CMP, lipase, spiral CT. UA, Uhcg,Ucx The patient will proceed to the ED for further evaluation Discharge Disposition - Diagnosis Left flank tenderness - Discharge Dispostion Condition at time of disposition: Stable - Referrals - Patient Instructions - Post Discharge Activity
[2018-09-07] MEDS ORDERED: SODIUM CHLORIDE 0.9% 500 ML INFUS.BAG IV ONE (21:56)
[2018-09-07] MEDS ORDERED: ONDANSETRON 4 MG/2 ML VIAL IVPUSH ONE (22:07)
[2018-09-07] MEDS ORDERED: ACETAMINOPHEN 1000 MG/100 ML VIAL (NON FORMULARY) IVPB ONE (22:07)
--- NOTE | 2018-09-07 22:07 | PDOC ---
History of Present Illness - General Chief Complaint: Pain, Acute Stated Complaint: LOWER REAR BACK PAIN Time Seen by Provider: 09/07/18 18:13 History Source: Patient Exam Limitations: No Limitations - History of Present Illness Initial Comments: 09/07/18 21:57 23YOF who is 1 mo s/p laparoscopic VSG with Dr. Amanda, also h/o asthma and D&C, who p/w sudden onset left sided abdominal and left flank pain which is severe 10 /10 and sharp, also nausea, dry heaves, and vomiting of yellow fluid. She notes that all the symptoms started this afternoon and have worsened since then. She denies any other prior episodes of these symptoms. Believes she has not had a good bowel movement in 2 weeks but states she is in so much pain she cannot remember. No report of black stool or rectal bleeding. No known complications after gastric bypass. She denies f/c. Past History - Past Medical History Allergies/Adverse Reactions: Allergies Allergy/AdvReac Type Severity Reaction Status Date / Time No Known Allergies Allergy Verified 09/07/18 18:13 Home Medications: Ambulatory Orders Ondansetron [Zofran Odt -] 4 mg SL TID PRN #21 od.tablet 09/10/18 Pantoprazole Sodium [Protonix -] 40 mg PO DAILY #30 tablet.ec 09/10/18 Asthma: Yes (has not needed meds in 1 year) Cancer: No Cardiac Disorders: No CVA: No COPD: No CHF: No Dementia: No Diabetes: No GI Disorders: No Disorders: No HTN: No Hypercholesterolemia: No Liver Disease: No Seizures: No Thyroid Disease: Yes (NODULE/BIOPSY) - Surgical History Abdominal Surgery: No Appendectomy: No Cardiac Surgery: No Cholecystectomy: No Lung Surgery: No Neurologic Surgery: No Orthopedic Surgery: No - Suicide/Smoking/Psychosocial Hx Smoking History: Never smoked Hx Alcohol Use: No Drug/Substance Use Hx: No Substance Use Type: None Hx Substance Use Treatment: No Review of Systems - Review of Systems Able to Perform ROS?: Yes Comments:: GEN: no fever, chills, malaise, generalized weakness, or weight change HEENT: no ear pain, sore throat, vision change, or eye pain CV: no chest pain, palpitations, lightheadedness, syncope, or edema RESP: no cough, wheezing, or SOB GI: abdominal pain, nausea, vomiting, constipation, no diarrhea, or white/black/ bloody stool : no dysuria, hematuria, incontinence, retention, bleeding, or discharge MSK: no neck/back pain, muscle weakness/pain, or joint swelling/pain NEURO: no headache, seizure, vertigo, numbness, tingling, or focal weakness PSYCH: no substance use, no behavior change SKIN: no jaundice, no rash ROS otherwise negative except as noted in HPI *Physical Exam - Vital Signs Last Vital Signs Temp Pulse Resp BP Pulse Ox 98.2 F 86 28 H 123/65 99 09/07/18 18:15 09/07/18 18:15 09/07/18 18:15 09/07/18 18:15 09/07/18 18:15 - Physical Exam Comments: 09/07/18 22:10 GENERAL: very uncomfortable, writhing, crying, mother at bedside is concerned, morbidly obese, eyesis bag in hand with small amount yellow fluid HEENT: PERRLA, EOMI, moist mucous membranes NECK/BACK: no midline ttp, no spinal stepoff or deformity, no hematoma, full ROM , neck supple CARDIOVASCULAR: regular rate/rhythm, normal S1S2, no MGR, strong peripheral pulses, capillary refill <2 seconds, extremities wwp, no edema LUNGS/RESPIRATORY: no respiratory distress, CTAB GI/ABDOMEN: laparoscopic incisions CDI, hypoactive bowel sounds, moderate LUQ and LLQ ttp and mild ttp to remainder of the abdomen, left CVA ttp, no midline pulsatile masses : no CVA tenderness EXTREMITIES: no muscle atrophy, no acute deformity SKIN: warm and dry, no pallor, no jaundice, no rash, no bruising, no skin breakdown, no cuts, no lesions NEUROLOGICAL: GCS 15, CN II-XII grossly intact, 5/5 strength proximally and distally, no facial droop ED Treatment Course - LABORATORY CBC & Chemistry Diagram: 09/10/18 07:05 09/10/18 07:05 - RADIOLOGY Radiology Studies Ordered: Category Date Time Status ABDOMEN & PELVIS CT WITH CONTR [CT] Stat CT Scan 09/07/18 21:55 Ordered Medical Decision Making - Medical Decision Making 23 YOF with recent laparoscopic VSG who p/w severe left flank and abdominal pain. Initial Vital Signs Temp Pulse Resp BP Pulse Ox 98.2 F 86 28 H 123/65 99 09/07/18 18:15 09/07/18 18:15 09/07/18 18:15 09/07/18 18:15 09/07/18 18:15 Exam: As noted in Physical Exam section. DDX IBNLT: renal colic, obstructive uropathy, UTI/pyelonephritis, also there is concern for bariatric postoperative complications (e.g. internal hernia, erosion of gastric surgical site, perforation, SBO, infection, abscess, peptic ulcer, etc), cholecystitis, cholangitis, pancreatitis, gastritis, PUD, colitis, ruptured diverticulosis, diverticulitis wwo abscess or perforation, less likely but still considered are ovarian torsion, ovarian cyst, ACS, etc. W/U ordered: Labs as noted below EKG CXR CT A/P with IV and PO contrast TX ordered: IVF, Zofran, Ofirmev Laboratory Tests 09/07/18 09/07/18 09/08/18 22:02 22:02 00:12 WBC 10.4 H RBC 4.58 Hgb 13.7 Hct 40.0 MCV 87.4 MCH 29.9 MCHC 34.2 RDW 14.5 Plt Count 191 MPV 10.2 Absolute Neuts (auto) 9.1 H Neutrophils % 87.8 H D Lymphocytes % 6.4 L D Monocytes % 5.6 Eosinophils % 0.1 D Basophils % 0.1 Nucleated RBC % 0 Sodium 146 H Potassium 3.4 L Chloride 111 H Carbon Dioxide 22 Anion Gap 13 BUN 9.3 Creatinine 0.8 Est GFR (CKD-EPI)AfAm 118.76 Est GFR (CKD-EPI)NonAf 102.47 Random Glucose 115 H Calcium 9.1 Total Bilirubin 0.4 AST 23 ALT 25 Alkaline Phosphatase 89 Total Protein 7.2 Albumin 3.7 Lipase 82 Urine Color Urine Appearance Urine pH Ur Specific [place] Urine Protein Urine Glucose (UA) Urine Ketones Urine Blood Urine Nitrite Urine Bilirubin Urine Urobilinogen Ur Leukocyte Esterase Urine WBC (Auto) Urine RBC (Auto) Urine Casts (Auto) U Epithel Cells (Auto) Urine Crystals (Auto) Urine Bacteria (Auto) Urine HCG, Qual Negative 09/08/18 00:12 WBC RBC Hgb Hct MCV MCH MCHC RDW Plt Count MPV Absolute Neuts (auto) Neutrophils % Lymphocytes % Monocytes % Eosinophils % Basophils % Nucleated RBC % Sodium Potassium Chloride Carbon Dioxide Anion Gap BUN Creatinine Est GFR (CKD-EPI)AfAm Est GFR (CKD-EPI)NonAf Random Glucose Calcium Total Bilirubin AST ALT Alkaline Phosphatase Total Protein Albumin Lipase Urine Color Yellow Urine Appearance Cloudy Urine pH 6.0 Ur Specific [place] 1.023 Urine Protein Trace Urine Glucose (UA) Negative Urine Ketones 4+ H Urine Blood 2+ H Urine Nitrite Negative Urine Bilirubin Negative Urine Urobilinogen 1.0 Ur Leukocyte Esterase Negative Urine WBC (Auto) 2 Urine RBC (Auto) 11 Urine Casts (Auto) 8 U Epithel Cells (Auto) 10.6 Urine Crystals (Auto) None Urine Bacteria (Auto) 572.9 Urine HCG, Qual 09/08/18 00:04 Patient's care is signed out to Dr. Garnica at the end of my shift pending UA, hCG , and CT A/P. *DC/Admit/Observation/Transfer Diagnosis at time of Disposition: Left flank tenderness, Left sided abdominal pain, Vomiting - Discharge Dispostion Condition at time of disposition: Guarded - Referrals - Patient Instructions - Post Discharge Activity
[2018-09-07] MEDS ORDERED: ONDANSETRON 4 MG/2 ML VIAL ONE (22:08)
[2018-09-07] MEDS ORDERED: ACETAMINOPHEN INJECTION 100 ML IVPB ONE (22:08)
[2018-09-07 22:34] LABS: BASO % 0.1 % (0-2.0); EOS % 0.1 % (0-4.5); HEMOGLOBIN 13.7 GM/dL (10.7-15.3); LYMPH % 6.4 % (8-40); MCH 29.9 pg (25.7-33.7); MCHC 34.2 g/dl (32.0-36.0); MEAN CELL VOLUME 87.4 fl (80-96); MEAN PLT VOLUME 10.2 fl (7.5-11.1); MONO % 5.6 % (3.8-10.2); NEUT % 87.8 % (42.8-82.8); PLATELET COUNT 191 K/MM3 (134-434); RBC 4.58 M/mm3 (3.60-5.2); RDW 14.5 % (11.6-15.6); WHITE BLOOD COUNT 10.4 K/mm3 (4.0-10.0)
[2018-09-07 22:51] LABS: ALBUMIN 3.7 g/dl (3.4-5.0); BILIRUBIN,TOTAL 0.4 mg/dL (0.2-1); BLOOD UREA NITROGEN 9.3 mg/dL (7-18); CALCIUM 9.1 mg/dL (8.5-10.1); CREATININE 0.8 mg/dL (0.55-1.3); POTASSIUM 3.4 mmol/L (3.5-5.1); TOT PROT 7.2 g/dl (6.4-8.2)
[2018-09-08 00:36] LABS: EPI CELLS 10.6 /HPF (0-5/HPF); HYALINE CASTS 8 /lpf (0-8); URINE APPEARANCE CLOUDY; URINE BACTERIA 572.9 /hpf (NEGATIVE); URINE BILIRUBIN NEGATIVE (NEGATIVE); URINE COLOR YELLOW; URINE GLUCOSE (UA) NEGATIVE (NEGATIVE); URINE KETONE 4+ (NEGATIVE); URINE LEUK ESTERASE NEGATIVE (NEGATIVE); URINE NITRITE NEGATIVE (NEGATIVE); URINE PROTEIN TRACE (NEGATIVE); URINE RBC 11 /hpf (0-4); URINE WBC 2 /hpf (0-5)
[2018-09-08] MEDS ORDERED: KETOROLAC TROMETHAMINE 30 MG/1 ML VIAL ONE (01:00)
[2018-09-08] MEDS ORDERED: morphine CARPU-JECT 4 MG/1 ML DISP.SYRIN IVPUSH ONE (01:01)
[2018-09-08] MEDS ORDERED: morphine SULFATE 4 MG/ML VIAL ONE (01:02)
--- NOTE | 2018-09-08 01:02 | PDOC ---
*Physical Exam - Vital Signs Last Vital Signs Temp Pulse Resp BP Pulse Ox 98.2 F 86 28 H 123/65 99 09/07/18 18:15 09/07/18 18:15 09/07/18 18:15 09/07/18 18:15 09/07/18 18:15 ED Treatment Course - LABORATORY CBC & Chemistry Diagram: 09/07/18 22:02 09/07/18 22:02 - ADDITIONAL ORDERS Additional order review: Laboratory Results 09/08/18 09/08/18 09/07/18 00:12 00:12 22:02 Sodium 146 H Potassium 3.4 L Chloride 111 H Carbon Dioxide 22 Anion Gap 13 BUN 9.3 Creatinine 0.8 Est GFR (CKD-EPI)AfAm 118.76 Est GFR (CKD-EPI)NonAf 102.47 Random Glucose 115 H Calcium 9.1 Total Bilirubin 0.4 AST 23 ALT 25 Alkaline Phosphatase 89 Total Protein 7.2 Albumin 3.7 Lipase 82 Urine Color Yellow Urine Appearance Cloudy Urine pH 6.0 Ur Specific [place] 1.023 Urine Protein Trace Urine Glucose (UA) Negative Urine Ketones 4+ H Urine Blood 2+ H Urine Nitrite Negative Urine Bilirubin Negative Urine Urobilinogen 1.0 Ur Leukocyte Esterase Negative Urine WBC (Auto) 2 Urine RBC (Auto) 11 Urine Casts (Auto) 8 U Epithel Cells (Auto) 10.6 Urine Bacteria (Auto) 572.9 Urine HCG, Qual Negative 09/07/18 22:02 RBC 4.58 MCV 87.4 MCHC 34.2 RDW 14.5 MPV 10.2 Neutrophils % 87.8 H D Lymphocytes % 6.4 L D Monocytes % 5.6 Eosinophils % 0.1 D Basophils % 0.1 - Medications Given in the ED: ED Medications Discontinued Medications Generic Name Dose Route Start Last Admin Trade Name Freq PRN Reason Stop Dose Admin Acetaminophen 1,000 mg 09/07/18 22:07 09/07/18 22:15 Ofirmev Injection - IVPB 09/07/18 22:08 1,000 mg ONCE ONE Administration Ondansetron HCl 8 mg 09/07/18 22:07 09/07/18 22:15 Zofran Injection IVPUSH 09/07/18 22:08 8 mg ONCE ONE Administration Sodium Chloride 1,000 ml 09/07/18 21:56 09/07/18 22:15 Normal Saline - IV 09/07/18 21:57 1,000 ml ONCE ONE Administration Medical Decision Making - Medical Decision Making 09/08/18 01:01 Sign out received from Dr Hoff Cynthia Granados is a 23yo with a history of obesity, 1 month post mark-en-y gastic bypass (Dr Amanda), asthma who presnted overnight with acute onset of 10/10 sharp left flank/abdominal pain and nausea. ED course so far notable for: - Labs unremarkable - IVF and zofran for symptoms - UA pending - CT abd/pelvis ordered for evaluation - Dr Amanda contacted by Dr Hoff. Will see tomorrow if admitted, should be contacted if CT shows concerning abnormalities 09/08/18 05:30 - CT completed. Shows likely recent kidney stone - Updated pt. Continues to retch, states that she feels lightheaded when she stands despite IV fluids and antiemetics - Microblog sent to hospitalist team for admission 09/08/18 07:28 - Hospitalist team has not yet responded - Signed out to day team for the reaminder of her ED management. Discussed with Dr Gallagher. Martita Garnica PGY2 *DC/Admit/Observation/Transfer Diagnosis at time of Disposition: Left flank tenderness - Discharge Dispostion Condition at time of disposition: Stable - Referrals - Patient Instructions - Post Discharge Activity
--- NOTE | 2018-09-08 02:29 | PDOC ---
Documentation entered by Wade Campbell SCRIBE, acting as scribe for Yamilet Gallagher DO. Yamilet Gallagher DO: This documentation has been prepared by the Adrian barfield Joel, SCRIBE, under my direction and personally reviewed by me in its entirety. I confirm that the documentation accurately reflects all work , treatment, procedures, and medical decision making performed by me. Attending Attestation - Resident Resident Name: AngelKourtney - ED Attending Attestation I have performed the following: I have examined & evaluated the patient, The case was reviewed & discussed with the resident, I agree w/resident's findings & plan - HPI HPI: 09/07/18 22:19 The patient is a 23 year old female with a significant PMH of gastric bypass () and asthma who presents to the emergency department for evaluation of upper abdominal pain with associated nausea and vomiting over the past several hours. The patient denies fevers and chills. She denies urinary complaints. Denies diarrhea and constipation. Allergies: NKA Past surgical history: None reported. Social history: No reported cigarette, alcohol, or drug use. PCP: Dr. Mccrary GI: Dr. Levi - Physicial Exam PE: 09/07/18 22:19 Agree with resident exam. - Medical Decision Making 09/08/18 02:27 23-year-old female with abdominal pain and vomiting status post gastric bypass surgery Patient has persistent vomiting despite IV fluids and antiemetics Plan for CT scan, surgery has been contacted and will see the patient tonight if needed new line otherwise patient will be admitted to hospitalist service for IV hydration and pain management
[2018-09-08] MEDS ORDERED: ONDANSETRON 4 MG/2 ML VIAL IVPUSH ONE (05:31)
[2018-09-08] MEDS ORDERED: SODIUM CHLORIDE 0.9% 500 ML INFUS.BAG IV ONE (05:31)
--- NOTE | 2018-09-08 07:39 | PDOC ---
*Physical Exam - Vital Signs Last Vital Signs Temp Pulse Resp BP Pulse Ox 99.1 F 76 20 119/76 100 09/08/18 06:06 09/08/18 06:06 09/08/18 06:06 09/08/18 06:06 09/08/18 06:06 ED Treatment Course - LABORATORY CBC & Chemistry Diagram: 09/07/18 22:02 09/07/18 22:02 - ADDITIONAL ORDERS Additional order review: Laboratory Results 09/08/18 09/08/18 09/07/18 00:12 00:12 22:02 Sodium 146 H Potassium 3.4 L Chloride 111 H Carbon Dioxide 22 Anion Gap 13 BUN 9.3 Creatinine 0.8 Est GFR (CKD-EPI)AfAm 118.76 Est GFR (CKD-EPI)NonAf 102.47 Random Glucose 115 H Calcium 9.1 Total Bilirubin 0.4 AST 23 ALT 25 Alkaline Phosphatase 89 Total Protein 7.2 Albumin 3.7 Lipase 82 Urine Color Yellow Urine Appearance Cloudy Urine pH 6.0 Ur Specific [place] 1.023 Urine Protein Trace Urine Glucose (UA) Negative Urine Ketones 4+ H Urine Blood 2+ H Urine Nitrite Negative Urine Bilirubin Negative Urine Urobilinogen 1.0 Ur Leukocyte Esterase Negative Urine WBC (Auto) 2 Urine RBC (Auto) 11 Urine Casts (Auto) 8 U Epithel Cells (Auto) 10.6 Urine Crystals (Auto) None Urine Bacteria (Auto) 572.9 Urine HCG, Qual Negative 09/07/18 22:02 RBC 4.58 MCV 87.4 MCHC 34.2 RDW 14.5 MPV 10.2 Neutrophils % 87.8 H D Lymphocytes % 6.4 L D Monocytes % 5.6 Eosinophils % 0.1 D Basophils % 0.1 - Medications Given in the ED: ED Medications Discontinued Medications Generic Name Dose Route Start Last Admin Trade Name Freq PRN Reason Stop Dose Admin Acetaminophen 1,000 mg 09/07/18 22:07 09/07/18 22:15 Ofirmev Injection - IVPB 09/07/18 22:08 1,000 mg ONCE ONE Administration Morphine Sulfate 4 mg 09/08/18 01:01 09/08/18 01:07 Morphine Injection - IVPUSH 09/08/18 01:02 4 mg ONCE ONE Administration Ondansetron HCl 8 mg 09/07/18 22:07 09/07/18 22:15 Zofran Injection IVPUSH 09/07/18 22:08 8 mg ONCE ONE Administration Ondansetron HCl 4 mg 09/08/18 05:31 09/08/18 05:51 Zofran Injection IVPUSH 09/08/18 05:32 Not Given ONCE ONE Sodium Chloride 1,000 ml 09/07/18 21:56 09/07/18 22:15 Normal Saline - IV 09/07/18 21:57 1,000 ml ONCE ONE Administration Sodium Chloride 1,000 ml 09/08/18 05:31 09/08/18 05:50 Normal Saline - IV 09/08/18 05:32 1,000 ml ONCE ONE Administration Medical Decision Making - Medical Decision Making 09/08/18 07:35 23 y/o F with hx of Mahamed en Y surgery 1 month ago with left flank tenderness from recently passed kidney stone. Microblog sent to admitting team by . Sent again by me this a.m at 7:33a.m. 09/08/18 10:[address] Mccrary's service. he requests a urology consult and for the patient to get IV fluids Consult to Claudia for urology put in 09/08/18 10:34 *DC/Admit/Observation/Transfer Diagnosis at time of Disposition: Left flank tenderness - Discharge Dispostion Condition at time of disposition: Stable Decision to Admit order: Yes - Referrals Referrals: Nona Mccrary MD [Primary Care Provider] - - Patient Instructions - Post Discharge Activity
[2018-09-08] MEDS ORDERED: SODIUM CHLORIDE 1,000 ML IV STA (10:33)
--- NOTE | 2018-09-08 15:39 | HP ---
Admitting History and Physical - Primary Care Physician PCP: Nona Mccrary - Admission Chief Complaint: L flank pain History of Present Illness: Patient is a 23 y/o female with past medical history of Mahamed-en-Y gastric bypass surgery 1 month ago, asthma. Patient presented to ER after experiencing acute onset of sharp left flank pain yesterday. Prior to onset of left flank pain patient admits to experiencing dysuria and frequency. Today she states she noted blood in the urine. Abdominal CT scan in ER showed hydronephrosis. In ER developed nausea with vomiting. At first vomitus was clear in color then with more frequent episodes turned dark green. History Source: Patient Limitations to Obtaining History: No Limitations - Past Medical History Pulmonary: Yes: Asthma ...LMP: 07/30/18 - Past Surgical History Past Surgical History: Yes: Bariatric Surgery - Smoking History Smoking history: Never smoked - Alcohol/Substance Use Hx Alcohol Use: No - Social History ADL: Independent History of Recent Travel: No Home Medications - Allergies Allergies/Adverse Reactions: Allergies Allergy/AdvReac Type Severity Reaction Status Date / Time No Known Allergies Allergy Verified 09/07/18 18:13 - Home Medications Home Medications: Ambulatory Orders Ondansetron [Zofran Odt -] 4 mg SL TID PRN #21 od.tablet 09/10/18 Pantoprazole Sodium [Protonix -] 40 mg PO DAILY #30 tablet.ec 09/10/18 Review of Systems - Review of Systems Constitutional: reports: Lethargy, Loss of Appetite, Weakness Eyes: reports: No Symptoms HENT: reports: No Symptoms Neck: reports: No Symptoms Cardiovascular: reports: Chest Pain Respiratory: reports: SOB Gastrointestinal: reports: Abdominal Pain, Constipation, Nausea, Vomiting Genitourinary: reports: Burning, Flank Pain, Frequency Breasts: reports: No Symptoms Reported Musculoskeletal: reports: No Symptoms Integumentary: reports: No Symptoms Neurological: reports: No Symptoms Endocrine: reports: No Symptoms Hematology/Lymphatic: reports: No Symptoms Psychiatric: reports: No Symptoms Physical Examination Vital Signs: Vital Signs Temperature 98.4 F 09/08/18 09:49 Pulse Rate 79 09/08/18 09:49 Respiratory Rate 16 09/08/18 09:49 Blood Pressure 106/71 09/08/18 09:49 O2 Sat by Pulse Oximetry (%) 97 09/08/18 09:49 Constitutional: Yes: No Distress, Calm, Obese Eyes: Yes: Conjunctiva Clear HENT: Yes: Atraumatic Neck: Yes: Supple Cardiovascular: Yes: Regular Rate and Rhythm Respiratory: Yes: Regular, CTA Bilaterally Gastrointestinal: Yes: Normal Bowel Sounds, Soft, Tenderness, Epigastrium Musculoskeletal: Yes: WNL Extremities: Yes: WNL Edema: No Neurological: Yes: Alert, Oriented Psychiatric: Yes: Alert, Oriented Labs: CBC, BMP 09/07/18 22:02 09/07/18 22:02 Imaging - Results Cat Scan: Report Reviewed Problem List - Problems (1) Left flank tenderness Assessment/Plan: -Urology consult -Abd CT scan shows mild left hydronephrosis with diminished nephrogram suggesting obstruction, no evidence of obstructing calculus -UA is 4+ ketons, 2+ blood, neg leuks -UC pending -Leukocytosis wbc 10.4 -ID consult Code(s): R10.819 - ABDOMINAL TENDERNESS, UNSPECIFIED SITE (2) Abdominal pain Assessment/Plan: -Abdominal US -pantoprazole -Zofran prn Code(s): R10.9 - UNSPECIFIED ABDOMINAL PAIN (3) Constipation Assessment/Plan: -miralax Code(s): K59.00 - CONSTIPATION, UNSPECIFIED (4) Hypokalemia Assessment/Plan: -K 3.4 -Potassium 20mEq PO x 1 -monitor electrolytes daily and replete as needed Code(s): E87.6 - HYPOKALEMIA Assessment/Plan see problem list dvt ppx
[2018-09-08] MEDS ORDERED: ONDANSETRON 4 MG/2 ML VIAL IVPUSH PRN (16:59)
[2018-09-08] MEDS ORDERED: POTASSIUM CHLORIDE ORAL LIQUID 20 MEQ/15 ML PO ONE (17:13)
[2018-09-08] MEDS: METOCLOPRAMIDE HCL INJECTION 10 MG/2 ML VIAL IVPUSH PRN (18:01)
[2018-09-08] MEDS: HEPARIN NA (PORCINE) 5,000 UNITS/ML 1ML VIAL SQ SCH (21:53)
--- NOTE | 2018-09-09 08:27 | CON.GU ---
Consult Consult Specialty:: urology Reason for Consultation:: left renal colic - History of Present Illness Chief Complaint: left renal colic History of Present Illness: Patient is a 23 year old female with history of left renal colic with nausea and vomiting. She denies fever and chills. The patient states that she passed some blood with small clots last night and felt better. This material was not examined. A CT initially showed mild left hydro which was not appreciated on follow-up renal sonogram. - History Source History Provided By: Patient Limitations to Obtaining History: No Limitations - Past Medical History Pulmonary: Yes: Asthma ...LMP: 07/30/18 - Past Surgical History Past Surgical History: Yes: Bariatric Surgery - Alcohol/Substance Use Hx Alcohol Use: No - Smoking History Smoking history: Never smoked - Social History ADL: Independent History of Recent Travel: No Home Medications - Allergies Allergies/Adverse Reactions: Allergies Allergy/AdvReac Type Severity Reaction Status Date / Time No Known Allergies Allergy Verified 09/07/18 18:13 - Home Medications Home Medications: Ambulatory Orders NK [No Known Home Medication] 09/07/18 Physical Exam- Vital Signs: Vital Signs Temperature 98.6 F 09/09/18 08:09 Pulse Rate 67 09/09/18 08:09 Respiratory Rate 20 09/09/18 08:09 Blood Pressure 97/58 L 09/09/18 08:09 O2 Sat by Pulse Oximetry (%) 99 09/08/18 21:00 Constitutional: Yes: Well Nourished, No Distress Eyes: Yes: WNL, Conjunctiva Clear, EOM Intact HENT: Yes: WNL, Atraumatic, Normocephalic Neck: Yes: WNL, Supple, Trachea Midline Cardiovascular: Yes: Regular Rate and Rhythm Respiratory: Yes: Regular Gastrointestinal: Yes: WNL, Normal Bowel Sounds, Soft Renal/: Yes: WNL Kidneys: Yes: WNL Pelvis: Yes: WNL, Bladder Non Palpable Labs: CBC, BMP 09/07/18 22:02 09/07/18 22:02 Imaging - Results Cat Scan: Report Reviewed Ultrasound: Report Reviewed Assessment/Plan imp renal colic s/p passed stone plan patient is urologically clear for discharge; will follow-up as outpatient
[2018-09-09] MEDS: METOCLOPRAMIDE HCL INJECTION 10 MG/2 ML VIAL IVPUSH PRN (08:44)
[2018-09-09 08:47] LABS: BASO % 0.2 % (0-2.0); HEMATOCRIT 36.2 % (32.4-45.2); HEMOGLOBIN 12.3 GM/dL (10.7-15.3); LYMPH % 39.9 % (8-40); MCH 29.7 pg (25.7-33.7); MEAN CELL VOLUME 87.1 fl (80-96); MEAN PLT VOLUME 9.8 fl (7.5-11.1); MONO % 9.8 % (3.8-10.2); NEUT % 49.1 % (42.8-82.8); PLATELET COUNT 157 K/MM3 (134-434); RBC 4.15 M/mm3 (3.60-5.2); RDW 14.5 % (11.6-15.6); WHITE BLOOD COUNT 4.7 K/mm3 (4.0-10.0)
[2018-09-09 09:34] LABS: BILIRUBIN,TOTAL 0.3 mg/dL (0.2-1); BLOOD UREA NITROGEN 3.2 mg/dL (7-18); CALCIUM 8.3 mg/dL (8.5-10.1); CREATININE 0.6 mg/dL (0.55-1.3); MAGNESIUM 1.9 mg/dL (1.8-2.4); POTASSIUM 3.1 mmol/L (3.5-5.1); TOT PROT 5.7 g/dl (6.4-8.2)
[2018-09-09] MEDS: HEPARIN NA (PORCINE) 5,000 UNITS/ML 1ML VIAL SQ SCH ×2 (10:59→21:44)
[2018-09-09] MEDS: PANTOPRAZOLE 40 MG TABLET (FP) PO SCH (10:59)
[2018-09-09] MEDS: POLYETHYLENE GLYCOL 3350 119 GM BTL PO SCH ×2 (11:12→12:06)
--- NOTE | 2018-09-09 11:58 | PN ---
Progress Note (short form) - Note Progress Note: ID consult dictated imp/reccd nausea Passed renal stone no signs infection no need for antibiotics at this time s/p bariatric surgery 07/2018 chronic constipation would observe off antibiotics, please call back if needed Problem List - Problems (1) Hematuria Code(s): R31.9 - HEMATURIA, UNSPECIFIED (2) Left flank tenderness Code(s): R10.819 - ABDOMINAL TENDERNESS, UNSPECIFIED SITE (3) S/P bariatric surgery Code(s): Z98.84 - BARIATRIC SURGERY STATUS
[2018-09-09] MEDS: SODIUM CHLORIDE 0.45% 1,000 ML IV SCH (13:17)
--- NOTE | 2018-09-09 16:23 | PN ---
Progress Note, Physician Chief Complaint: Left Renal Colic History of Present Illness: Previous notes and events reviewed awake and alert NAD continue to complain of nausea, denies vomiting sts L flank pain is better - Current Medication List Current Medications: Active Medications Heparin Sodium (Porcine) (Heparin -) 5,000 unit SQ BID [facility] Last Admin: 09/09/18 10:59 Dose: 5,000 unit Sodium Chloride (1/2 Normal Saline) 1,000 mls @ 75 mls/hr IV ASDIR [facility] Last Admin: 09/09/18 13:17 Dose: 75 mls/hr Metoclopramide HCl (Reglan Injection -) 10 mg IVPUSH Q6H PRN PRN Reason: NAUSEA AND/OR VOMITING Last Admin: 09/09/18 08:44 Dose: 10 mg Ondansetron HCl (Zofran Injection) 4 mg IVPUSH Q6H PRN PRN Reason: NAUSEA Pantoprazole Sodium (Protonix -) 40 mg PO DAILY [facility] Last Admin: 09/09/18 10:59 Dose: 40 mg Polyethylene Glycol (Miralax (For Daily Use) -) 17 gm PO DAILY [facility] Last Admin: 09/09/18 12:06 Dose: Not Given - Objective Vital Signs: Vital Signs Temperature 98.8 F 09/09/18 14:00 Pulse Rate 84 09/09/18 14:00 Respiratory Rate 20 09/09/18 14:00 Blood Pressure 118/68 09/09/18 14:00 O2 Sat by Pulse Oximetry (%) 99 09/09/18 09:00 Constitutional: Yes: No Distress, Calm Eyes: Yes: Conjunctiva Clear HENT: Yes: Atraumatic Cardiovascular: Yes: Regular Rate and Rhythm Respiratory: Yes: Regular, CTA Bilaterally Gastrointestinal: Yes: Normal Bowel Sounds, Soft, Abdomen, Obese Genitourinary: Yes: CVA Tenderness - Left Musculoskeletal: Yes: WNL Extremities: Yes: WNL Edema: No Neurological: Yes: Alert, Oriented Psychiatric: Yes: Alert, Oriented Labs: CBC, BMP 09/09/18 07:55 09/09/18 07:55 - ....Imaging Ultrasound: Report Reviewed Problem List - Problems (1) Left flank tenderness Assessment/Plan: -Urology on board -Abd CT scan shows mild left hydronephrosis with diminished nephrogram suggesting obstruction, no evidence of obstructing calculus -UA is 4+ ketons, 2+ blood, neg leuks -UC neg -no leukocytosis Code(s): R10.819 - ABDOMINAL TENDERNESS, UNSPECIFIED SITE (2) Abdominal pain Assessment/Plan: -Abdominal US -pantoprazole -Zofran prn Code(s): R10.9 - UNSPECIFIED ABDOMINAL PAIN (3) Constipation Assessment/Plan: -miralax Code(s): K59.00 - CONSTIPATION, UNSPECIFIED (4) Hypokalemia Assessment/Plan: -K 3.1 -KCl 10mEq IVPB x 2 -monitor electrolytes daily and replete as needed Code(s): E87.6 - HYPOKALEMIA Assessment/Plan see problem list dvt ppx
--- NOTE | 2018-09-09 16:25 | CONS ---
INFECTIOUS DISEASE CONSULTATION DATE OF CONSULTATION: DATE OF DICTATION: 09/09/2018 REQUESTING PHYSICIAN: Nona Mccrary MD HISTORY: This is a 23-year-old woman. She is status post bariatric surgery 1 month ago at [facility] with Dr. Amanda on August 10. Postoperatively, she had some nausea that resolved. She has been tolerating very small meals. On the , she developed acute left flank pain. She came to the emergency room. She had no fevers or chills. She had nausea and was vomiting. She was admitted for further evaluation. She had a CT scan of her abdomen and pelvis done that showed a mild left hydronephrosis. There was no evidence of obstructive calculus. She had a 2-mm calculus in the mid pole. She was admitted and hydrated. This morning she noted that she had hematuria as well. Her flank pain is mostly resolved. She notes that she still has some nausea, but she is not vomiting. PAST MEDICAL HISTORY: Notable for history of asthma. She has a history of chronic constipation. She is status post recent bariatric surgery in July of this year. FAMILY HISTORY: Notable for diabetes and hypertension. SOCIAL HISTORY: No history of cigarette or alcohol use. 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 She is not sexually active. REVIEW OF SYSTEMS: Notable for currently she has nausea. She has no fevers or chills. She has no dysuria, and she has not had a bowel movement in 2 weeks, which she states is normal for her. She suffers from chronic constipation. ALLERGIES: She has no known drug allergies. MEDICATIONS: On no home medicines. PHYSICAL EXAMINATION: General: She is awake and alert. She is a pleasant young lady in no acute distress. Very chatty. Vital Signs: Temperature is 98.8, pulse of 80. She has never had any fever since admission. Blood pressure is 115/65, respiratory rate is 20. She is saturating 99% on room air. HEENT: She is normocephalic. Her eyes are anicteric. Neck: Supple. Lungs: Clear to auscultation. Heart: Regular rate and rhythm. Abdomen: She has no flank tenderness. She has a well-healed laparoscopic scar on her abdomen, which is soft and nontender. Extremities: Without edema. DIAGNOSTIC DATA: White count on admission was 10.4, today is 4.7, hemoglobin 12.3, platelets are 157. BUN 3.2, creatinine 0.6. LFTs are normal. Urinalysis on admission had 4+ ketones with 2+ blood with 2 white cells. Urine culture notable for 50,000 urogenital lola. CAT scan findings are as previously stated. She had an ultrasound as well that showed no evidence of hydronephrosis or any stones. In summary, this is a 23-year-old woman with nausea. I suspect a recently passed kidney stone. She has no signs of infection, no need for antibiotics at this time. She is status post recent bariatric surgery July of this year. Follow up per her bariatric surgeon. She suffers from chronic constipation. Would observe her off antibiotics. Please call back if needed. SERA FLORES M.D. [id number]
[2018-09-09] MEDS: KCL 10 MEQ IVPB 10 MEQ/100 ML INFUS.BAG IVPB SCH ×3 (17:30→23:03)
[2018-09-09] MEDS ORDERED: POTASSIUM CHLORIDE TABS 20 MEQ TABLET.ER (FP) PO ONE (20:41)
[2018-09-10] MEDS ORDERED: ACETAMINOPHEN 325 MG TABLET (FP) PO PRN (00:44)
[2018-09-10] MEDS: METOCLOPRAMIDE HCL INJECTION 10 MG/2 ML VIAL IVPUSH PRN ×2 (01:25→11:43)
[2018-09-10] MEDS ORDERED: TRIMETHOBENZAMIDE HCL 200MG/2ML INJ IM PRN (04:13)
[2018-09-10] MEDS ORDERED: ACETAMINOPHEN 1000 MG/100 ML VIAL (NON FORMULARY) IVPB ONE (04:15)
[2018-09-10 08:22] LABS: HEMATOCRIT 37.7 % (32.4-45.2); HEMOGLOBIN 12.9 GM/dL (10.7-15.3); MCH 29.9 pg (25.7-33.7); MCHC 34.3 g/dl (32.0-36.0); MEAN CELL VOLUME 87.2 fl (80-96); MEAN PLT VOLUME 9.7 fl (7.5-11.1); RBC 4.32 M/mm3 (3.60-5.2); RDW 14.2 % (11.6-15.6)
[2018-09-10 08:33] LABS: ALBUMIN 3.2 g/dl (3.4-5.0); BILIRUBIN,TOTAL 0.4 mg/dL (0.2-1); BLOOD UREA NITROGEN 3.4 mg/dL (7-18); CALCIUM 8.5 mg/dL (8.5-10.1); CREATININE 0.5 mg/dL (0.55-1.3); POTASSIUM 3.2 mmol/L (3.5-5.1); TOT PROT 6.1 g/dl (6.4-8.2)
[2018-09-10 09:07] LABS: PLATELET COUNT 172 K/MM3 (134-434)
[2018-09-10] MEDS ORDERED: POTASSIUM CHLORIDE ORAL LIQUID 20 MEQ/15 ML PO ONE (10:00)
[2018-09-10 10:10] VITALS: BP 119/74; PULSE 74; TEMP 98.7
[2018-09-10] MEDS: PANTOPRAZOLE 40 MG TABLET (FP) PO SCH (10:18)
[2018-09-10] MEDS: HEPARIN NA (PORCINE) 5,000 UNITS/ML 1ML VIAL SQ SCH (10:18)
[2018-09-10] MEDS: POLYETHYLENE GLYCOL 3350 119 GM BTL PO SCH (10:20)
--- NOTE | 2018-09-10 10:44 | DS ---
Physical Examination Vital Signs: Vital Signs Temperature 98.7 F 09/10/18 10:09 Pulse Rate 74 09/10/18 10:09 Respiratory Rate 20 09/10/18 10:09 Blood Pressure 119/74 09/10/18 10:09 O2 Sat by Pulse Oximetry (%) 99 09/09/18 21:00 Findings/Remarks: Patient is a 23 y/o female with past medical history of Mahamed-en-Y gastric bypass surgery 1 month ago, asthma. Patient presented to ER after experiencing acute onset of sharp left flank pain yesterday. Prior to onset of left flank pain patient admits to experiencing dysuria and frequency. Today she states she noted blood in the urine. Abdominal CT scan in ER showed hydronephrosis. In ER developed nausea with vomiting. At first vomitus was clear in color then with more frequent episodes turned dark green. Constitutional: Yes: No Distress, Calm, Obese Eyes: Yes: Conjunctiva Clear HENT: Yes: Atraumatic Cardiovascular: Yes: Regular Rate and Rhythm Respiratory: Yes: Regular, CTA Bilaterally Gastrointestinal: Yes: Normal Bowel Sounds, Soft Musculoskeletal: Yes: Muscle Weakness Extremities: Yes: WNL Edema: No Neurological: Yes: Alert, Oriented Psychiatric: Yes: Alert, Oriented Labs: CBC, BMP 09/10/18 07:05 09/10/18 07:05 Microbiology 09/08/18 00:10 Urine - Urine Clean Catch Urine Culture - Final Normal Urogenital Aysha Discharge Summary Reason For Visit: ABDOMINAL TENDERNESS IN LEFT FLANK Current Active Problems Hematuria (Acute) Hypokalemia (Acute) Left flank tenderness (Acute) S/P bariatric surgery (Acute) Hospital Course: see progress notes Laboratory Tests 09/07/18 09/07/18 09/08/18 22:02 22:02 00:12 WBC 10.4 H RBC 4.58 Hgb 13.7 Hct 40.0 MCV 87.4 MCH 29.9 MCHC 34.2 RDW 14.5 Plt Count 191 MPV 10.2 Absolute Neuts (auto) 9.1 H Neutrophils % 87.8 H D Lymphocytes % 6.4 L D Monocytes % 5.6 Eosinophils % 0.1 D Basophils % 0.1 Nucleated RBC % 0 Sodium 146 H Potassium 3.4 L Chloride 111 H Carbon Dioxide 22 Anion Gap 13 BUN 9.3 Creatinine 0.8 Est GFR (CKD-EPI)AfAm 118.76 Est GFR (CKD-EPI)NonAf 102.47 Random Glucose 115 H Calcium 9.1 Phosphorus Magnesium Total Bilirubin 0.4 AST 23 ALT 25 Alkaline Phosphatase 89 Total Protein 7.2 Albumin 3.7 Lipase 82 TSH Urine Color Urine Appearance Urine pH Ur Specific [place] Urine Protein Urine Glucose (UA) Urine Ketones Urine Blood Urine Nitrite Urine Bilirubin Urine Urobilinogen Ur Leukocyte Esterase Urine WBC (Auto) Urine RBC (Auto) Urine Casts (Auto) U Epithel Cells (Auto) Urine Crystals (Auto) Urine Bacteria (Auto) Urine HCG, Qual Negative 09/08/18 09/09/18 09/09/18 00:12 07:55 07:55 WBC 4.7 RBC 4.15 Hgb 12.3 Hct 36.2 MCV 87.1 MCH 29.7 MCHC 34.0 RDW 14.5 Plt Count 157 MPV 9.8 Absolute Neuts (auto) 2.3 Neutrophils % 49.1 D Lymphocytes % 39.9 D Monocytes % 9.8 Eosinophils % 1.0 D Basophils % 0.2 Nucleated RBC % 0 Sodium 143 Potassium 3.1 L Chloride 109 H Carbon Dioxide 28 Anion Gap 6 L BUN 3.2 L Creatinine 0.6 Est GFR (CKD-EPI)AfAm 146.83 Est GFR (CKD-EPI)NonAf 126.68 Random Glucose 104 Calcium 8.3 L Phosphorus 3.0 Magnesium 1.9 Total Bilirubin 0.3 AST 17 ALT 23 Alkaline Phosphatase 67 Total Protein 5.7 L Albumin 3.0 L Lipase TSH 0.99 Urine Color Yellow Urine Appearance Cloudy Urine pH 6.0 Ur Specific [place] 1.023 Urine Protein Trace Urine Glucose (UA) Negative Urine Ketones 4+ H Urine Blood 2+ H Urine Nitrite Negative Urine Bilirubin Negative Urine Urobilinogen 1.0 Ur Leukocyte Esterase Negative Urine WBC (Auto) 2 Urine RBC (Auto) 11 Urine Casts (Auto) 8 U Epithel Cells (Auto) 10.6 Urine Crystals (Auto) None Urine Bacteria (Auto) 572.9 Urine HCG, Qual 09/10/18 09/10/18 07:05 07:05 WBC 5.0 RBC 4.32 Hgb 12.9 Hct 37.7 MCV 87.2 MCH 29.9 MCHC 34.3 RDW 14.2 Plt Count 172 MPV 9.7 Absolute Neuts (auto) Neutrophils % Lymphocytes % Monocytes % Eosinophils % Basophils % Nucleated RBC % Sodium 142 Potassium 3.2 L Chloride 109 H Carbon Dioxide 25 Anion Gap 9 BUN 3.4 L Creatinine 0.5 L Est GFR (CKD-EPI)AfAm 155.90 Est GFR (CKD-EPI)NonAf 134.52 Random Glucose 80 Calcium 8.5 Phosphorus Magnesium Total Bilirubin 0.4 AST 15 ALT 22 Alkaline Phosphatase 72 Total Protein 6.1 L Albumin 3.2 L Lipase TSH Urine Color Urine Appearance Urine pH Ur Specific [place] Urine Protein Urine Glucose (UA) Urine Ketones Urine Blood Urine Nitrite Urine Bilirubin Urine Urobilinogen Ur Leukocyte Esterase Urine WBC (Auto) Urine RBC (Auto) Urine Casts (Auto) U Epithel Cells (Auto) Urine Crystals (Auto) Urine Bacteria (Auto) Urine HCG, Qual Active Medications Generic Name Dose Route Start Last Admin Trade Name Freq PRN Reason Stop Dose Admin Acetaminophen 650 mg 09/10/18 00:44 09/10/18 00:52 Tylenol - PO 650 mg Q6H PRN Administration PAIN LEVEL 1-5 Heparin Sodium (Porcine) 5,000 unit 09/08/18 22:00 09/10/18 10:18 Heparin - SQ Not Given BID [facility] Sodium Chloride 1,000 mls @ 75 mls/hr 09/09/18 12:30 09/09/18 13:17 1/2 Normal Saline IV 75 mls/hr ASDIR [facility] Administration Metoclopramide HCl 10 mg 09/08/18 17:47 09/10/18 01:25 Reglan Injection - IVPUSH 10 mg Q6H PRN Administration NAUSEA AND/OR VOMITING Pantoprazole Sodium 40 mg 09/09/18 10:00 09/10/18 10:18 Protonix - PO 40 mg DAILY [facility] Administration Polyethylene Glycol 17 gm 09/09/18 10:00 09/10/18 10:20 Miralax (For Daily Use) - PO Not Given DAILY [facility] Trimethobenzamide HCl 200 mg 09/10/18 04:13 09/10/18 04:37 Tigan Injection - IM 200 mg Q8H PRN Administration NAUSEA Microbiology 09/08/18 00:10 Urine - Urine Clean Catch Urine Culture - Final Normal Urogenital Aysha Condition: Stable - Instructions Diet, Activity, Other Instructions: follow up with pmd in 1 week follow up with Urologist Dr Moss Eat crackers, oatmeal apple juice, flat soda, broth continue with medication as prescribed return to ER if develops blood in urine, fevers, abdominal pain, vomiting Referrals: Ravi Noland MD [Staff Physician] - Disposition: HOME - Home Medications Comprehensive Discharge Medication List: Ambulatory Orders Ondansetron [Zofran Odt -] 4 mg SL TID PRN #21 od.tablet 09/10/18 Pantoprazole Sodium [Protonix -] 40 mg PO DAILY #30 tablet.ec 09/10/18
[2018-09-10] MEDS: SODIUM CHLORIDE 0.45% 1,000 ML IV SCH (13:15)
== END 2018-09-10 13:41 | disposition home or self-care (01) | DRG 465 ==
LOC: JER 17:56 → JERBED 09-08 10:27 → J5S 09-08 16:57
PROVIDERS: ADMIT Family Medicine; ATTEND Family Medicine
DX: N13.2 Hydronephrosis with renal and ureteral calculous obstruction (principal); E87.6 Hypokalemia; R10.819 Abdominal tenderness, unspecified site; Z98.84 Bariatric surgery status; K59.00 Constipation, unspecified; R31.9 Hematuria, unspecified; R11.2 Nausea with vomiting, unspecified; R53.83 Other fatigue; R63.0 Anorexia; R53.1 Weakness; R10.9 Unspecified abdominal pain; E66.01 Morbid (severe) obesity due to excess calories; Z68.38 Body mass index [BMI] 38.0-38.9, adult
CPT/HCPCS: 36415; 74177-TC; 76700-TC; 80053; 81003; 83690; 83735; 84100; 84436; 84443; 84703; 85025; 85027; 87086; 99283-25; J0131; J1644; J7030

== ENCOUNTER 2018-12-15 05:46 | Emergency (ER) | payer OTHER ==
--- NOTE | 2018-12-15 05:55 | PDOC ---
Attending Attestation - Resident Resident Name: Filiberto Spicer - ED Attending Attestation I have performed the following: I have examined & evaluated the patient, The case was reviewed & discussed with the resident, I agree w/resident's findings & plan - HPI HPI: 12/15/18 06:07 see resident hpi - Physicial Exam PE: 12/15/18 06:07 agree with resident exam - Medical Decision Making 12/15/18 06:07 23-year-old female post gastric bypass with left flank pain Plan for CT abdomen and pelvis IV fluid, IV Tylenol and Toradol pending CT scan results Case to be signed out to oncoming shift
[2018-12-15 06:02] VITALS: BMI 31.3
[2018-12-15] MEDS ORDERED: ACETAMINOPHEN 1000 MG/100 ML VIAL (NON FORMULARY) IVPB ONE (06:06)
[2018-12-15] MEDS ORDERED: SODIUM CHLORIDE 1,000 ML IV STA (06:06)
--- NOTE | 2018-12-15 06:25 | PDOC ---
History of Present Illness - General Chief Complaint: Pain Stated Complaint: ABD PAIN Time Seen by Provider: 12/15/18 05:55 History Source: Patient Exam Limitations: No Limitations - History of Present Illness Initial Comments: 12/15/18 06:19 23 yo F with a hx of a gastric sleeve surgery (07/2018) presents to the emergency department with sudden onset of left upper and lower abdominal pain with radiation to the left flank since 2 am. Per the patient, she states the pain is similar to her previous kidney stones. Per the patient, the pain is cramping like, without aggravating and relieving factors, and 10/10 in severity. Denies the following: fever, dysuria, hematuria, diarrhea, hematochezia, urinary frequency, and urinary incontinence. She endorses 2x vomiting episodes without hematemesis. Endorses constipation with last BM 3 days ago. She denies chest pain and SOB. Denies taking home pain medications. Allergies: NKDA Past History - Past Medical History Allergies/Adverse Reactions: Allergies Allergy/AdvReac Type Severity Reaction Status Date / Time No Known Allergies Allergy Verified 12/15/18 06:02 Home Medications: Ambulatory Orders Ondansetron [Zofran *Odt*] 4 mg SL TID PRN #21 od.tablet 09/10/18 Pantoprazole Sodium [Protonix -] 40 mg PO DAILY #30 tablet.ec 09/10/18 Ondansetron [Zofran *Odt*] 4 mg SL BID #10 od.tablet 12/15/18 Tramadol HCl 50 mg PO BID #4 tablet MDD 2 12/15/18 Asthma: Yes (has not needed meds in 1 year) Cancer: No Cardiac Disorders: No CVA: No COPD: No CHF: No Dementia: No Diabetes: No GI Disorders: No Disorders: No HTN: No Hypercholesterolemia: No Liver Disease: No Seizures: No Thyroid Disease: Yes (NODULE/BIOPSY) - Surgical History Abdominal Surgery: No Appendectomy: No Cardiac Surgery: No Cholecystectomy: No GI Surgery: Yes (gastric sleeve) Lung Surgery: No Neurologic Surgery: No Orthopedic Surgery: No - Immunization History Td Vaccination: Yes TDAP Vaccination: Yes Immunization Up to Date: Yes - Psycho Social/Smoking Cessation Hx Smoking History: Never smoked Hx Alcohol Use: No Drug/Substance Use Hx: No Substance Use Type: None Hx Substance Use Treatment: No Review of Systems - Review of Systems Able to Perform ROS?: Yes Is the patient limited Faroese proficient: No Constitutional: Yes: Chills. No: Diaphoresis, Fever, Weakness HEENTM: No: Eye Pain, Ear Pain, Nose Pain, Throat Pain, Mouth Pain Respiratory: No: Cough, Shortness of Breath, Hemoptysis Cardiac (ROS): No: Chest Pain, Lightheadedness, Palpitations, Syncope ABD/GI: Yes: Nausea, Vomiting, Abdominal cramping. No: Poor Appetite, Poor Fluid Intake, Rectal Bleeding, Tarry Stools : Yes: Flank Pain. No: Burning, Dysuria, Hematuria, Incontinence Musculoskeletal: No: Back Pain, Joint Pain, Neck Pain Integumentary: No: Bruising, Flushing, Lesions Neurological: No: Headache, Numbness, Tingling, Tremors Psychiatric: No: Change in Appetite Endocrine: No: Unexplained Weight Loss Hematologic/Lymphatic: No: Anemia *Physical Exam - Vital Signs Last Vital Signs Temp Pulse Resp BP Pulse Ox 97.2 F L 95 H 18 97/75 100 12/15/18 05:47 12/15/18 05:47 12/15/18 05:47 12/15/18 05:47 12/15/18 05:47 - Physical Exam General Appearance: Yes: Nourished, Appropriately Dressed, Obese. No: Apparent Distress, Intoxicated HEENT: positive: EOMI, CAMILA, Normal Voice, Symmetrical, Hearing Grossly Normal. negative: Pale Conjunctivae, Scleral Icterus (R), Scleral Icterus (L), Muffled /Hoarse voice, Pharyngeal Erythema, Tonsillar Exudate, Tonsillar Erythema, Excessive drooling Neck: positive: Trachea midline, Supple. negative: Tender, Lymphadenopathy (R) , Lymphadenopathy (L) Respiratory/Chest: positive: Lungs Clear, Normal Breath Sounds. negative: Chest Tender, Respiratory Distress, Accessory Muscle Use, Crackles, Rales, Rhonchi, Stridor Cardiovascular: positive: Regular Rhythm, Regular Rate, S1, S2. negative: Systolic Murmur Gastrointestinal/Abdominal: positive: Normal Bowel Sounds, Tender (LUQ and LLQ. ), Flat, Soft, Other (scars consistent with bariatric surgery) Lymphatic: negative: Adenopathy Musculoskeletal: positive: Normal Inspection, CVA Tenderness (L). negative: CVA Tenderness (R), Muscle Spasm, Vertebral Tenderness Extremity: positive: Normal Capillary Refill, Normal Inspection, Normal Range of Motion. negative: Tender Integumentary: positive: Normal Color, Dry, Warm Neurologic: positive: Fully Oriented, Alert, Normal Mood/Affect ED Treatment Course - LABORATORY CBC & Chemistry Diagram: 12/15/18 06:15 12/15/18 06:15 Medical Decision Making - Medical Decision Making 23 yo F with a hx of a gastric sleeve surgery (07/2018) presents to the emergency department with sudden onset of left upper and lower abdominal pain with radiation to the left flank since 2 am. Initial vitals: Initial Vital Signs Temp Pulse Resp BP Pulse Ox 97.2 F L 95 H 18 97/75 100 12/15/18 05:47 12/15/18 05:47 12/15/18 05:47 12/15/18 05:47 12/15/18 05:47 Work up: patient presents with left abdominal pain with left flank pain. Will obtain cbc , cmp, ua, urine culture, and urine . I suspect the patient has a renal calculi given presenting symptoms and physical exam. will treat with tylenol and fluids and zofran. the patient stated she is unable to have NSAIDs for 9 months after surgery Patient was signed out to day team Discharge - Discharge Information Problems reviewed: Yes Clinical Impression/Diagnosis: Acute left flank pain Condition: Fair - Additional Discharge Information Prescriptions: Ondansetron [Zofran *Odt*] 4 mg SL BID #10 od.tablet Tramadol HCl 50 mg PO BID #4 tablet MDD 2 - Follow up/Referral Referrals: Farhan Portillo MD [Staff Physician] - Nona Mccrary MD [Primary Care Provider] - - Patient Discharge Instructions Patient Printed Discharge Instructions: Kidney Stones -- Adult Additional Instructions: Please return to the emergency department with any new or worsening symptoms or concerns. Please follow up with urology within 72 hours and your primary care physician within 72 hours. Can take medication as needed for pain. - Post Discharge Activity Work/Back to School Note: Back to Work
[2018-12-15] MEDS ORDERED: ACETAMINOPHEN INJECTION 100 ML IVPB ONE (06:26)
[2018-12-15] MEDS ORDERED: ONDANSETRON 4 MG/2 ML VIAL IVPUSH ONE (06:26)
[2018-12-15 06:30] LABS: EPI CELLS 20.6 /HPF (0-5/HPF); HYALINE CASTS 15 /lpf (0-8); PH,URINE 5.5 (5.0-8.0); URINE APPEARANCE TURBID; URINE BACTERIA 409.4 /hpf (NEGATIVE); URINE BILIRUBIN NEGATIVE (NEGATIVE); URINE COLOR DK YELLOW; URINE GLUCOSE (UA) NEGATIVE (NEGATIVE); URINE KETONE 4+ (NEGATIVE); URINE LEUK ESTERASE TRACE (NEGATIVE); URINE NITRITE NEGATIVE (NEGATIVE); URINE PROTEIN 2+ (NEGATIVE); URINE RBC 1846 /hpf (0-4); URINE WBC 4 /hpf (0-5)
[2018-12-15] MEDS ORDERED: KETOROLAC TROMETHAMINE 15 MG/ML VIAL IVPUSH ONE (06:32)
[2018-12-15] MEDS ORDERED: ONDANSETRON 4 MG/2 ML VIAL ONE (06:34)
[2018-12-15] MEDS ORDERED: KETOROLAC TROMETHAMINE 15 MG/ML VIAL ONE (06:34)
[2018-12-15 06:37] LABS: BASO % 0.3 % (0-2.0); EOS % 0.8 % (0-4.5); HEMATOCRIT 40.4 % (32.4-45.2); HEMOGLOBIN 13.8 GM/dL (10.7-15.3); LYMPH % 26.1 % (8-40); MCHC 34.3 g/dl (32.0-36.0); MEAN CELL VOLUME 90.5 fl (80-96); MEAN PLT VOLUME 10.1 fl (7.5-11.1); MONO % 9.1 % (3.8-10.2); NEUT % 63.7 % (42.8-82.8); PLATELET COUNT 206 K/MM3 (134-434); RBC 4.46 M/mm3 (3.60-5.2); RDW 13.7 % (11.6-15.6); WHITE BLOOD COUNT 7.1 K/mm3 (4.0-10.0)
[2018-12-15 06:54] LABS: INR 1.19 (0.83-1.09); PROTHROMBIN TIME (PATIENT) 14.1 SEC (9.7-13.0)
[2018-12-15 06:59] LABS: ALBUMIN 3.9 g/dl (3.4-5.0); BILIRUBIN,TOTAL 0.6 mg/dL (0.2-1); BLOOD UREA NITROGEN 7.6 mg/dL (7-18); CALCIUM 9.1 mg/dL (8.5-10.1); CREATININE 0.7 mg/dL (0.55-1.3); POTASSIUM 3.6 mmol/L (3.5-5.1); TOT PROT 7.1 g/dl (6.4-8.2)
[2018-12-15] MEDS ORDERED: morphine CARPU-JECT 4 MG/1 ML DISP.SYRIN IVPUSH ONE (07:17)
[2018-12-15] MEDS ORDERED: METOCLOPRAMIDE HCL INJECTION 10 MG/2 ML VIAL IVPB ONE (07:18)
[2018-12-15] MEDS ORDERED: METOCLOPRAMIDE HCL INJECTION 10 MG/2 ML VIAL ONE (07:23)
[2018-12-15] MEDS ORDERED: morphine SULFATE 4 MG/ML VIAL ONE (07:23)
--- NOTE | 2018-12-15 07:32 | PDOC ---
*Physical Exam - Vital Signs Last Vital Signs Temp Pulse Resp BP Pulse Ox 97.2 F L 95 H 18 97/75 100 12/15/18 05:47 12/15/18 05:47 12/15/18 05:47 12/15/18 05:47 12/15/18 05:47 - Physical Exam Comments: 12/15/18 08:07 GENERAL: Awake, alert, and fully oriented, in no acute distress HEAD: No signs of trauma, normocephalic, atraumatic EYES: PERRLA, EOMI, sclera anicteric, conjunctiva clear ENT: Auricles normal inspection, hearing grossly normal, nares patent, oropharynx clear without exudates. Moist mucosa NECK: Normal ROM, supple, no lymphadenopathy, JVD, or masses LUNGS: No distress, speaks full sentences, clear to auscultation bilaterally HEART: Regular rate and rhythm, normal S1 and S2, no murmurs, rubs or gallops, peripheral pulses normal and equal bilaterally. ABDOMEN: + L flank ttp. Soft, NDS, normoactive bowel sounds. No guarding, no rebound. No masses EXTREMITIES : Normal inspection, Normal range of motion, no edema. No clubbing or cyanosis NEUROLOGICAL: Cranial nerves II through XII grossly intact. Normal speech, normal gait, no focal sensorimotor deficits SKIN: Warm, Dry, normal turgor, no rashes or lesions noted ED Treatment Course - LABORATORY CBC & Chemistry Diagram: 12/15/18 06:15 12/15/18 06:15 - ADDITIONAL ORDERS Additional order review: Laboratory Results 12/15/18 12/15/18 12/15/18 06:15 06:15 06:15 WBC 7.1 RBC 4.46 Hgb 13.8 Hct 40.4 MCV 90.5 MCH 31.0 MCHC 34.3 RDW 13.7 Plt Count 206 MPV 10.1 Absolute Neuts (auto) 4.5 Neutrophils % 63.7 D Lymphocytes % 26.1 D Monocytes % 9.1 Eosinophils % 0.8 Basophils % 0.3 Nucleated RBC % 0 PT with INR 14.10 H INR 1.19 H Sodium 142 Potassium 3.6 Chloride 107 Carbon Dioxide 23 Anion Gap 12 BUN 7.6 Creatinine 0.7 Est GFR (CKD-EPI)AfAm 139.57 Est GFR (CKD-EPI)NonAf 120.42 Random Glucose 94 Calcium 9.1 Total Bilirubin 0.6 AST 27 ALT 23 Alkaline Phosphatase 89 Total Protein 7.1 Albumin 3.9 Urine Color Urine Appearance Urine pH Ur Specific Hamilton Urine Protein Urine Glucose (UA) Urine Ketones Urine Blood Urine Nitrite Urine Bilirubin Urine Urobilinogen Ur Leukocyte Esterase Urine WBC (Auto) Urine RBC (Auto) Urine Casts (Auto) U Epithel Cells (Auto) Urine Bacteria (Auto) Urine HCG, Qual 12/15/18 12/15/18 06:00 06:00 WBC RBC Hgb Hct MCV MCH MCHC RDW Plt Count MPV Absolute Neuts (auto) Neutrophils % Lymphocytes % Monocytes % Eosinophils % Basophils % Nucleated RBC % PT with INR INR Sodium Potassium Chloride Carbon Dioxide Anion Gap BUN Creatinine Est GFR (CKD-EPI)AfAm Est GFR (CKD-EPI)NonAf Random Glucose Calcium Total Bilirubin AST ALT Alkaline Phosphatase Total Protein Albumin Urine Color Dk yellow Urine Appearance Turbid Urine pH 5.5 Ur Specific Hamilton 1.036 H Urine Protein 2+ H Urine Glucose (UA) Negative Urine Ketones 4+ H Urine Blood 3+ H Urine Nitrite Negative Urine Bilirubin Negative Urine Urobilinogen 1.0 Ur Leukocyte Esterase Trace Urine WBC (Auto) 4 Urine RBC (Auto) 1846 Urine Casts (Auto) 15 U Epithel Cells (Auto) 20.6 Urine Bacteria (Auto) 409.4 Urine HCG, Qual Negative 12/15/18 06:15 RBC 4.46 MCV 90.5 MCHC 34.3 RDW 13.7 MPV 10.1 Neutrophils % 63.7 D Lymphocytes % 26.1 D Monocytes % 9.1 Eosinophils % 0.8 Basophils % 0.3 - Medications Given in the ED: ED Medications Discontinued Medications Generic Name Dose Route Start Last Admin Trade Name Tyeq PRN Reason Stop Dose Admin Acetaminophen 1,000 mg 12/15/18 06:06 12/15/18 06:31 Ofirmev Injection - IVPB 12/15/18 06:07 1,000 mg ONCE ONE Administration Sodium Chloride 1,000 mls @ 1,000 mls/hr 12/15/18 06:06 12/15/18 06:30 Normal Saline - IV 12/15/18 07:05 1,000 mls/hr ASDIR STA Administration Ketorolac Tromethamine 15 mg 12/15/18 06:32 12/15/18 06:39 Toradol Injection - IVPUSH 12/15/18 06:33 Not Given ONCE ONE Ondansetron HCl 4 mg 12/15/18 06:26 12/15/18 06:38 Zofran Injection IVPUSH 12/15/18 06:27 4 mg ONCE ONE Administration 12/15/18 09:28 Maude Reynoso Name: TAJ COLON DEPARTMENT OF RADIOLOGY Phys: Filiberto Spicer RESIDENT : 1995 Age: 23 Sex: F [facility] Acct: [id number] Loc: [address] Exam Date: 12/15/18 Status: JONNY [place] [id number] Unit Number: [id number] EXAM#: TYPE/EXAM: RESULT: [id number] CT/SPIRAL- RENAL-STONE CT HISTORY PROVIDED: Left flank pain TECHNIQUE: Sequential axial images were obtained from the domes of the diaphragm through the symphysis pubis utilizing urinary tract calculi protocol. The lung bases are clear. There is a 3 mm calcification within the proximal left ureter consistent with a partially obstructing calculus. This stone had been within the mid pole of the left upper collecting system on a prior study dated 11/25/2018. There is a mild degree of hydronephrosis associated with this stone. There is no evidence of calculi within the kidneys, ureters or urinary bladder. There is no evidence of right-sided hydronephrosis or obstructive uropathy. No significant abnormalities of the liver, spleen, pancreas, or adrenal glands are identified. The gallbladder is clear. The patient is S/P sleeve gastrectomy. There is no evidence of intra-abdominal, retroperitoneal or pelvic mass lesions, fluid collections or lymphadenopathy. There is no evidence of pneumoperitoneum, bowel obstruction or intra-abdominal abscess. There is no CT evidence of acute appendicitis or diverticulitis. IMPRESSION: 3 mm proximal left ureteral calculus with mild hydronephrosis. Please see above discussion. 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 Denies F/C, CP, SOB, abdominal pain, urinary complaints, lightheadedness, weakness, sensory changes. Patient endorsed by Dr. Spicer. Patient has received Reglan, Diphehydramine,Tylenol, Zofran for symptom management. + blood in UA w/out signs of infection. CBC/CMP are unremarkable. Patient pending CT AP. S/S likely 2/2 renal stone. Evaluating for obstructive uropathy. Pain control, reassess. 12/15/18 08:00 Ed Course: 12/15/18 09:29 CT AP: IMPRESSION: 3 mm proximal left ureteral calculus with mild hydronephrosis. Patient pain improved with morphine Stable for d/c with return precautions Advised to f/u PMD and urology Discharge - Discharge Information Problems reviewed: Yes Clinical Impression/Diagnosis: Acute left flank pain Condition: Fair Disposition: HOME - Admission No - Additional Discharge Information Prescriptions: Ondansetron [Zofran *Odt*] 4 mg SL BID #10 od.tablet Tramadol HCl 50 mg PO BID #4 tablet MDD 2 - Follow up/Referral Referrals: Nona Mccrary MD [Primary Care Provider] - Farhan Portillo MD [Staff Physician] - - Patient Discharge Instructions Patient Printed Discharge Instructions: Kidney Stones -- Adult Additional Instructions: Please return to the emergency department with any new or worsening symptoms or concerns. Please follow up with urology within 72 hours and your primary care physician within 72 hours. Can take medication as needed for pain. - Post Discharge Activity Work/Back to School Note: Back to Work
[2018-12-15 10:08] VITALS: BP 125/85; PULSE 84; TEMP 98.8
== END 2018-12-15 10:20 | disposition home or self-care (01) ==
LOC: JER 05:46
PROC: 3E033NZ Introduction of Analgesics, Hypnotics, Sedatives into Peripheral Vein, Percutaneous Approach (ICD-10-PCS; principal; 2018-12-15)
PROC: 3E033GC Introduction of Other Therapeutic Substance into Peripheral Vein, Percutaneous Approach (ICD-10-PCS; 2018-12-15)
PROC: 3E0333Z Introduction of Anti-inflammatory into Peripheral Vein, Percutaneous Approach (ICD-10-PCS; 2018-12-15)
PROC: 3E033GC Introduction of Other Therapeutic Substance into Peripheral Vein, Percutaneous Approach (ICD-10-PCS; 2018-12-15)
PROC: 3E033GC Introduction of Other Therapeutic Substance into Peripheral Vein, Percutaneous Approach (ICD-10-PCS; 2018-12-15)
PROC: 3E0337Z Introduction of Electrolytic and Water Balance Substance into Peripheral Vein, Percutaneous Approach (ICD-10-PCS; 2018-12-15)
DX: N13.2 Hydronephrosis with renal and ureteral calculous obstruction (principal); R10.32 Left lower quadrant pain; Z98.84 Bariatric surgery status
CPT/HCPCS: 36415; 74176-TC; 80053; 81003; 84703; 85025; 85610; 87086; 96361; 96374; 96375; 99283-25; J0131; J7030

== ENCOUNTER 2018-12-25 12:06 | Emergency (ER) | payer OTHER ==
[2018-12-25 12:13] VITALS: BP 107/73; PULSE 98; TEMP 98.5; BMI 31.3
[2018-12-25] MEDS ORDERED: KETOROLAC TROMETHAMINE 30 MG/1 ML VIAL IVPUSH ONE (12:46)
[2018-12-25] MEDS ORDERED: SODIUM CHLORIDE 1,000 ML IV STA (12:46)
[2018-12-25] MEDS ORDERED: KETOROLAC TROMETHAMINE 30 MG/1 ML VIAL ONE (12:51)
[2018-12-25] MEDS ORDERED: ONDANSETRON 4 MG/2 ML VIAL ONE (12:51)
[2018-12-25] MEDS: ONDANSETRON 4 MG/2 ML VIAL IVPUSH ONE ×2 (12:59→13:16)
--- NOTE | 2018-12-25 13:14 | PDOC ---
History of Present Illness - General Chief Complaint: Back Pain Stated Complaint: LOWER BACK PAIN (POSS KID STONE) Time Seen by Provider: 12/25/18 12:16 History Source: Patient - History of Present Illness Occurred: reports: this morning Severity: reports: moderate Pain Location: reports: back Past History - Past Medical History Allergies/Adverse Reactions: Allergies Allergy/AdvReac Type Severity Reaction Status Date / Time No Known Allergies Allergy Verified 12/25/18 12:27 Home Medications: Ambulatory Orders Ondansetron [Zofran *Odt*] 4 mg SL TID PRN #21 od.tablet 09/10/18 Tramadol HCl 50 mg PO BID #4 tablet MDD 2 12/15/18 Ibuprofen [Motrin -] 600 mg PO QID #28 tablet 12/25/18 Ondansetron HCl [Zofran] 4 mg PO Q8H #8 tablet 12/25/18 Tamsulosin HCl [Flomax] 0.4 mg PO DAILY #7 capsule 12/25/18 Tramadol HCl 50 mg PO Q6H #12 tablet MDD 200 mg 12/25/18 Asthma: Yes (has not needed meds in 1 year) Cancer: No Cardiac Disorders: No CVA: No COPD: No CHF: No Dementia: No Diabetes: No GI Disorders: No Disorders: No HTN: No Hypercholesterolemia: No Liver Disease: No Seizures: No Thyroid Disease: Yes (NODULE/BIOPSY) - Surgical History Abdominal Surgery: No Appendectomy: No Cardiac Surgery: No Cholecystectomy: No GI Surgery: Yes (gastric sleeve) Lung Surgery: No Neurologic Surgery: No Orthopedic Surgery: No - Immunization History Td Vaccination: Yes TDAP Vaccination: Yes Immunization Up to Date: Yes - Psycho Social/Smoking Cessation Hx Smoking History: Former smoker Have you smoked in the past 12 months: No Information on smoking cessation initiated: No Hx Alcohol Use: No Drug/Substance Use Hx: No Substance Use Type: None Hx Substance Use Treatment: No Review of Systems - Review of Systems Constitutional: No: Chills, Fever ABD/GI: Yes: Nausea. No: Diarrhea, Vomiting : Yes: Dysuria, Flank Pain. No: Hematuria Musculoskeletal: Yes: Back Pain *Physical Exam - Vital Signs Last Vital Signs Temp Pulse Resp BP Pulse Ox 98.5 F 98 H 18 107/73 99 12/25/18 12:09 12/25/18 12:09 12/25/18 12:09 12/25/18 12:09 12/25/18 12:09 - Physical Exam General Appearance: Yes: Appropriately Dressed, Mild Distress HEENT: positive: Normal Voice Neck: positive: Supple Respiratory/Chest: negative: Respiratory Distress Gastrointestinal/Abdominal: positive: Soft. negative: Tender Musculoskeletal: positive: CVA Tenderness (L) Integumentary: positive: Dry, Warm Neurologic: positive: Fully Oriented, Alert, Normal Mood/Affect ED Treatment Course - LABORATORY CBC & Chemistry Diagram: 12/25/18 13:10 12/25/18 13:10 - RADIOLOGY Radiology Studies Ordered: Category Date Time Status ABDOMEN & PELVIS CT W/O CONTR [CT] Stat CT Scan 12/25/18 12:46 Ordered Medical Decision Making - Medical Decision Making 12/25/18 12:57 33-year-old female, s/p weight loss surgery July of this year at [place], kidney stones here with L flank pain that started this morning and has since improved with pain medication patient had at home following her prior kidney stone. + dysuria and nausea, no hematuria, fever or chills. No surgery for kidney stone in past. Of note, pt was seen for L flank pain several weeks ago at [facility] and had CT done which showed L ureteral stone. No additional kidney stones were seen at the time see exam L flank pain Similar to prior renal stones -pain control -zofran -labs -CT -dispo pending 12/25/18 14:48 12/25/18 14:52 CT w/ 4mm stone to distal L ureter w/ mild hydro. UA w/ blood, trace LE, 7 WBC and 109 robin, UCX sent. Do not suspect infected stone and so will hold off on abx. Of note, prior ucx here have all been negative. Pt currently pain free and feels well enough to go home. Stable for dc w/ symptomatic control. Has upcoming appt per pt Discharge - Discharge Information Problems reviewed: Yes Clinical Impression/Diagnosis: Renal stone Condition: Improved Disposition: HOME - Additional Discharge Information Prescriptions: Ibuprofen [Motrin -] 600 mg PO QID #28 tablet Ondansetron HCl [Zofran] 4 mg PO Q8H #8 tablet Tamsulosin HCl [Flomax] 0.4 mg PO DAILY #7 capsule Tramadol HCl 50 mg PO Q6H #12 tablet MDD 200 mg - Follow up/Referral - Patient Discharge Instructions Patient Printed Discharge Instructions: Kidney Stones -- Adult Additional Instructions: Your CAT scan showed a 4 mm stone in your distal left ureter. You most likely will pass that stone over the next couple days. Use strainer as instructed Take medication as instructed and maintain adequate hydration. Follow-up with your urologist at already scheduled appointment Return to ER symptoms worsen - Post Discharge Activity
[2018-12-25 13:20] LABS: BASO % 0.3 % (0-2.0); EOS % 0.5 % (0-4.5); HEMATOCRIT 41.4 % (32.4-45.2); HEMOGLOBIN 14.1 GM/dL (10.7-15.3); LYMPH % 20.9 % (8-40); MCH 31.1 pg (25.7-33.7); MEAN CELL VOLUME 91.4 fl (80-96); MEAN PLT VOLUME 10.3 fl (7.5-11.1); MONO % 8.7 % (3.8-10.2); NEUT % 69.6 % (42.8-82.8); PLATELET COUNT 200 K/MM3 (134-434); RBC 4.52 M/mm3 (3.60-5.2); WHITE BLOOD COUNT 8.3 K/mm3 (4.0-10.0)
[2018-12-25 13:37] LABS: EPI CELLS 5.9 /HPF (0-5/HPF); HYALINE CASTS 3 /lpf (0-8); URINE BACTERIA 109.2 /hpf (NEGATIVE); URINE RBC 15 /hpf (0-4); URINE WBC 7 /hpf (0-5)
[2018-12-25 13:54] LABS: ALBUMIN 3.8 g/dl (3.4-5.0); BILIRUBIN,TOTAL 0.5 mg/dL (0.2-1); BLOOD UREA NITROGEN 8.5 mg/dL (7-18); CREATININE 0.7 mg/dL (0.55-1.3); POTASSIUM 3.4 mmol/L (3.5-5.1); TOT PROT 7.4 g/dl (6.4-8.2)
[2018-12-25 14:26] LABS: PH,URINE 6.5 (5.0-8.0); URINE APPEARANCE Clear; URINE BILIRUBIN Negative (NEGATIVE); URINE COLOR Yellow; URINE GLUCOSE (UA) Negative (NEGATIVE); URINE KETONE 4+ (NEGATIVE); URINE LEUK ESTERASE Trace (NEGATIVE); URINE NITRITE Negative (NEGATIVE); URINE PROTEIN Trace (NEGATIVE); URINE UROBILINOGEN 0.2 mg/dL (0.2-1.0)
[2018-12-25] MEDS ORDERED: TAMSULOSIN HCL 0.4 MG CAP PO ONE (14:52)
[2018-12-25] MEDS ORDERED: TAMSULOSIN HCL 0.4 MG CAP ONE (15:09)
== END 2018-12-25 15:13 | disposition home or self-care (01) ==
LOC: JERFT 12:06
PROC: 3E0333Z Introduction of Anti-inflammatory into Peripheral Vein, Percutaneous Approach (ICD-10-PCS; principal; 2018-12-25)
DX: N20.0 Calculus of kidney (principal); Z98.84 Bariatric surgery status; Z87.891 Personal history of nicotine dependence; E07.9 Disorder of thyroid, unspecified; J45.909 Unspecified asthma, uncomplicated
CPT/HCPCS: 36415; 74176-TC; 80053; 81003; 84703; 85025; 87086; 96374; 99282-25; J7030

== ENCOUNTER 2019-01-02 05:51 | Inpatient (IN) | payer OTHER ==
[2019-01-02 06:53] LABS: EPI CELLS 4.2 /HPF (0-5/HPF); HYALINE CASTS 4 /lpf (0-8); PH,URINE 5.5 (5.0-8.0); URINE APPEARANCE CLEAR; URINE BACTERIA 69.5 /hpf (NEGATIVE); URINE BILIRUBIN NEGATIVE (NEGATIVE); URINE COLOR YELLOW; URINE GLUCOSE (UA) NEGATIVE (NEGATIVE); URINE KETONE 4+ (NEGATIVE); URINE LEUK ESTERASE NEGATIVE (NEGATIVE); URINE NITRITE NEGATIVE (NEGATIVE); URINE PROTEIN 2+ (NEGATIVE); URINE RBC 10 /hpf (0-4); URINE WBC 3 /hpf (0-5)
--- NOTE | 2019-01-02 07:29 | PDOC ---
Attending Attestation - Resident Resident Name: Filiberto Spicer - ED Attending Attestation I have performed the following: I have examined & evaluated the patient, The case was reviewed & discussed with the resident, I agree w/resident's findings & plan, Exceptions are as noted - HPI HPI: 01/02/19 10:07 Ms Granados is a 23 yo F with a history of Left renal colic, known partially obstructing kidney stone She presents to he ER wit a complaint of intractable vomiting, flank and abdominal pain No fevers or chills No diarrhea No abdominal distention - Physicial Exam PE: 01/02/19 07:26 GENERAL: The patient is in no acute distress, vomiting. ENT:Dry mucous membranes. NECK: Normal range of motion, supple LUNGS: Breath sounds equal, clear to auscultation bilaterally. No wheezes, and no crackles. HEART:Regular rate and rhythm, normal S1 and S2 without murmur, rub or gallop. ABDOMEN: Soft, nontender, nondistended, Left CVA tenderness. EXTREMITIES: Normal range of motion, no edema. NEUROLOGICAL: Cranial nerves II through XII grossly intact. Normal speech. No focal neurological deficits. SKIN: Warm, Dry, normal turgor, no rashes or lesions noted. 01/02/19 07:40 - Medical Decision Making 01/02/19 07:27 Laboratory Tests 01/02/19 01/02/19 06:14 06:14 Urine Ketones 4+ H Urine Blood 1+ H Urine Nitrite Negative Ur Leukocyte Esterase Negative Urine WBC (Auto) 3 Urine RBC (Auto) 10 Urine HCG, Qual Negative 01/02/19 07:35 CT on 11/25: Status post sleeve gastrectomy, no evidence of fluid collection, no acute pathology in the abdomen or pelvis CT on 12/15: 3 mm proximal left ureteral calculus with mild hydronephrosis, no right-sided hydronephrosis or obstructive uropathy CT on 12/25: 4 mm calcification in the left distal ureter consistent with a partially obstructing calculus, mild degree of hydronephrosis 01/02/19 07:36 01/02/19 07:36 We will do: Basic labs IV hydration Pepcid Antiemetics Reassess If imaging necessary, would do Xray and U/S 01/02/19 10:07 Laboratory Tests 01/02/19 01/02/19 01/02/19 06:14 06:14 08:50 WBC 8.6 Hgb 14.1 Hct 40.9 Plt Count 195 Neutrophils % 88.5 H D BUN Creatinine Lipase Serum , Qual Urine Blood 1+ H Urine Nitrite Negative Ur Leukocyte Esterase Negative Urine WBC (Auto) 3 Urine RBC (Auto) 10 Urine HCG, Qual Negative 01/02/19 01/02/19 08:50 08:50 WBC Hgb Hct Plt Count Neutrophils % BUN 7.8 Creatinine 0.9 Lipase 54 L Serum , Qual Negative Urine Blood Urine Nitrite Ur Leukocyte Esterase Urine WBC (Auto) Urine RBC (Auto) Urine HCG, Qual 01/02/19 10:10 01/02/19 11:28 CT: 4 mm obstructing calculus left UVJ No other abdominal pathology identified We will reassess. If patient continues to have intractable vomiting will admit 01/02/19 12:13 Will admit Call placed to Dr. Hernandez Discharge - Discharge Information Problems reviewed: Yes Clinical Impression/Diagnosis: Urinary tract obstruction by kidney stone, Intractable vomiting with nausea Condition: Stable - Admission Yes - Follow up/Referral Referrals: Nona Mccrary MD [Primary Care Provider] - - Patient Discharge Instructions - Post Discharge Activity
[2019-01-02] MEDS ORDERED: FAMOTIDINE 20 MG/50 ML IVPB 20 MG/50 ML MG IVPB ONE ×3 (07:32→13:48)
[2019-01-02] MEDS ORDERED: ONDANSETRON 4 MG/2 ML VIAL ONE (07:32)
[2019-01-02] MEDS ORDERED: ONDANSETRON 4 MG/2 ML VIAL IVPUSH ONE (07:35)
[2019-01-02] MEDS ORDERED: SODIUM CHLORIDE 1,000 ML IV STA (07:35)
[2019-01-02] MEDS ORDERED: ACETAMINOPHEN 1000 MG/100 ML VIAL (NON FORMULARY) IVPB ONE (07:35)
--- NOTE | 2019-01-02 08:47 | PDOC ---
History of Present Illness - General Chief Complaint: Pain, Acute Stated Complaint: VOMITING,PAIN Time Seen by Provider: 01/02/19 07:25 History Source: Patient Exam Limitations: No Limitations - History of Present Illness Initial Comments: 23 yo F with a hx of gastric sleeve placement (07/2018) and known left renal stone partially obstructing (urology appointment later this month) presents to the emergency department with left flank pain that began suddenly at rest yesterday. She had 2x vomiting episodes non billious non bloody. The pain is similar in quality to her kidney stone pain, 12/03, constant, radiating from the left lower back. Denies the following symptoms: fever, chills, SOB, chest pain, dysuria, hematuria, urinary frequency, urinary urgency, thoracic back pain , abdominal pain, constipation, diarrhea, and leg pain/swelling. Endorses nausea and vomiting. Social: Denies tobacco, alcohol, and substance abuse. Past History - Past Medical History Allergies/Adverse Reactions: Allergies Allergy/AdvReac Type Severity Reaction Status Date / Time ondansetron [From Zofran] AdvReac Verified 01/02/19 13:43 Home Medications: Ambulatory Orders Ondansetron [Zofran *Odt*] 4 mg SL TID PRN #21 od.tablet 09/10/18 Tramadol HCl 50 mg PO BID #4 tablet MDD 2 12/15/18 Ibuprofen [Motrin -] 600 mg PO QID #28 tablet 12/25/18 Ondansetron HCl [Zofran] 4 mg PO Q8H #8 tablet 12/25/18 Tamsulosin HCl [Flomax -] 0.4 mg PO DAILY #7 capsule 12/25/18 Tramadol HCl 50 mg PO Q6H #12 tablet MDD 200 mg 12/25/18 Lidocaine 5% Patch [Lidoderm -] 1 patch TP DAILY@1800 #30 patch 01/05/19 Pantoprazole Sodium [Protonix -] 40 mg PO DAILY #30 tablet.ec 01/05/19 Asthma: Yes (has not needed meds in 1 year) Cancer: No Cardiac Disorders: No CVA: No COPD: No CHF: No Dementia: No Diabetes: No GI Disorders: No Disorders: No HTN: No Hypercholesterolemia: No Kidney Stones: Yes (x 6) Liver Disease: No Seizures: No Thyroid Disease: Yes (NODULE/BIOPSY) - Surgical History Abdominal Surgery: No Appendectomy: No Cardiac Surgery: No Cholecystectomy: No GI Surgery: Yes (gastric sleeve) Lung Surgery: No Neurologic Surgery: No Orthopedic Surgery: No - Immunization History Td Vaccination: Yes TDAP Vaccination: Yes Immunization Up to Date: Yes - Psycho Social/Smoking Cessation Hx Smoking History: Never smoked Have you smoked in the past 12 months: No Information on smoking cessation initiated: No Hx Alcohol Use: No Drug/Substance Use Hx: No Substance Use Type: None Hx Substance Use Treatment: No Review of Systems - Review of Systems Able to Perform ROS?: Yes Is the patient limited Georgian proficient: No Constitutional: No: Chills, Diaphoresis, Fever, Weakness HEENTM: No: Eye Pain, Ear Pain, Nose Pain, Throat Pain, Mouth Pain Respiratory: No: Cough, Shortness of Breath, Hemoptysis Cardiac (ROS): No: Chest Pain, Lightheadedness, Palpitations, Syncope ABD/GI: Yes: Nausea, Vomiting. No: Constipated, Diarrhea, Rectal Bleeding, Tarry Stools : Yes: Flank Pain. No: Burning, Dysuria, Incontinence, Pain Musculoskeletal: No: Back Pain, Joint Pain, Neck Pain Integumentary: No: Bruising, Erythema, Lesions Neurological: No: Headache, Numbness, Tingling, Tremors Psychiatric: No: Change in Appetite Endocrine: No: Unexplained Weight Loss Hematologic/Lymphatic: No: Anemia *Physical Exam - Vital Signs Last Vital Signs Temp Pulse Resp BP Pulse Ox 97.9 F 87 20 139/91 100 01/02/19 06:06 01/02/19 06:06 01/02/19 06:06 01/02/19 06:06 01/02/19 06:06 - Physical Exam General Appearance: Yes: Nourished, Appropriately Dressed, Obese. No: Apparent Distress HEENT: positive: EOMI, CAMILA, Normal Voice, Symmetrical, Pharynx Normal, Hearing Grossly Normal. negative: Pale Conjunctivae, Scleral Icterus (R), Scleral Icterus (L), Muffled/Hoarse voice, Pharyngeal Erythema, Tonsillar Exudate, Tonsillar Erythema, Excessive drooling Neck: positive: Trachea midline, Supple. negative: Tender, Lymphadenopathy (R) , Lymphadenopathy (L), Tender lateral, Tender midline Respiratory/Chest: positive: Lungs Clear, Normal Breath Sounds. negative: Chest Tender, Respiratory Distress, Accessory Muscle Use Cardiovascular: positive: Regular Rhythm, Regular Rate, S1, S2. negative: Systolic Murmur Gastrointestinal/Abdominal: positive: Normal Bowel Sounds, Flat, Soft. negative : Tender, Rebound, Tenderness, Hernia Lymphatic: negative: Adenopathy Musculoskeletal: positive: Normal Inspection, CVA Tenderness (L). negative: CVA Tenderness (R), Vertebral Tenderness Extremity: positive: Normal Capillary Refill, Normal Inspection, Normal Range of Motion. negative: Tender, Swelling, Calf Tenderness Integumentary: positive: Normal Color, Dry, Warm. negative: Swelling, Ecchymosis Neurologic: positive: actuarial associate II-XII NML intact, Fully Oriented, Alert, Normal Mood/ Affect, Normal Response, Motor Strength 5/5. negative: Facial Droop, Numbness, Sensory Deficit ED Treatment Course - LABORATORY CBC & Chemistry Diagram: 01/02/19 08:50 01/04/19 11:15 - ADDITIONAL ORDERS Additional order review: Laboratory Results 01/02/19 01/02/19 06:14 06:14 Urine Color Yellow Urine Appearance Clear Urine pH 5.5 Ur Specific [place] 1.030 Urine Protein 2+ H Urine Glucose (UA) Negative Urine Ketones 4+ H Urine Blood 1+ H Urine Nitrite Negative Urine Bilirubin Negative Urine Urobilinogen 1.0 Ur Leukocyte Esterase Negative Urine WBC (Auto) 3 Urine RBC (Auto) 10 Urine Casts (Auto) 4 U Epithel Cells (Auto) 4.2 Urine Bacteria (Auto) 69.5 Urine HCG, Qual Negative Medical Decision Making - Medical Decision Making 23 yo F with a hx of gastric sleeve placement (07/2018) and known left renal stone partially obstructing (urology appointment later this month) presents to the emergency department with left flank pain that began suddenly at rest yesterday. Initial vitals: Initial Vital Signs Temp Pulse Resp BP Pulse Ox 97.9 F 87 20 139/91 100 01/02/19 06:06 01/02/19 06:06 01/02/19 06:06 01/02/19 06:06 01/02/19 06:06 Work up: ddx: nephrolithiasis vs UTI vs obstruction nephrolithisis vs pyelonephritis. Laboratory Tests 01/02/19 01/02/19 01/02/19 06:14 06:14 08:50 WBC 8.6 RBC 4.48 Hgb 14.1 Hct 40.9 MCV 91.3 MCH 31.4 MCHC 34.3 RDW 13.5 Plt Count 195 MPV 10.6 Absolute Neuts (auto) 7.6 Neutrophils % 88.5 H D Lymphocytes % 5.8 L D Monocytes % 5.4 Eosinophils % 0.0 D Basophils % 0.3 Nucleated RBC % 0 Sodium Potassium Chloride Carbon Dioxide Anion Gap BUN Creatinine Est GFR (CKD-EPI)AfAm Est GFR (CKD-EPI)NonAf Random Glucose Calcium Total Bilirubin AST ALT Alkaline Phosphatase Total Protein Albumin Lipase Serum , Qual Urine Color Yellow Urine Appearance Clear Urine pH 5.5 Ur Specific [place] 1.030 Urine Protein 2+ H Urine Glucose (UA) Negative Urine Ketones 4+ H Urine Blood 1+ H Urine Nitrite Negative Urine Bilirubin Negative Urine Urobilinogen 1.0 Ur Leukocyte Esterase Negative Urine WBC (Auto) 3 Urine RBC (Auto) 10 Urine Casts (Auto) 4 U Epithel Cells (Auto) 4.2 Urine Bacteria (Auto) 69.5 Urine HCG, Qual Negative 01/02/19 01/02/19 08:50 08:50 WBC RBC Hgb Hct MCV MCH MCHC RDW Plt Count MPV Absolute Neuts (auto) Neutrophils % Lymphocytes % Monocytes % Eosinophils % Basophils % Nucleated RBC % Sodium 139 Potassium 4.0 Chloride 108 H Carbon Dioxide 20 L Anion Gap 11 BUN 7.8 Creatinine 0.9 Est GFR (CKD-EPI)AfAm 103.00 Est GFR (CKD-EPI)NonAf 88.87 Random Glucose 89 Calcium 9.3 Total Bilirubin 0.7 AST 23 ALT 19 Alkaline Phosphatase 86 Total Protein 7.4 Albumin 3.9 Lipase 54 L Serum , Qual Negative Urine Color Urine Appearance Urine pH Ur Specific [place] Urine Protein Urine Glucose (UA) Urine Ketones Urine Blood Urine Nitrite Urine Bilirubin Urine Urobilinogen Ur Leukocyte Esterase Urine WBC (Auto) Urine RBC (Auto) Urine Casts (Auto) U Epithel Cells (Auto) Urine Bacteria (Auto) Urine HCG, Qual patient has significant nausea and vomiting. given zofran and reglan without control of nausea/vomiting symptoms, continues to have multiple non bloody vomiting episodes in the department but now vomit is neon green. CT abdomen and pelvis ordered. CT shows a 4 mm L obstructing calculus at the UVJ. The patient has a known [partially obstructing stone on the left side that was uncovered within the past 2 weeks. Patient to be admitted for intractable nausea and vomiting in setting of obstructing calculus. labs within normal limits. Patient given 1 mg of ativan for nausea/vomiting control. Discharge - Discharge Information Problems reviewed: Yes Clinical Impression/Diagnosis: Urinary tract obstruction by kidney stone, Intractable vomiting with nausea Condition: Stable - Follow up/Referral - Patient Discharge Instructions - Post Discharge Activity
[2019-01-02 09:25] LABS: BASO % 0.3 % (0-2.0); HEMATOCRIT 40.9 % (32.4-45.2); HEMOGLOBIN 14.1 GM/dL (10.7-15.3); LYMPH % 5.8 % (8-40); MCH 31.4 pg (25.7-33.7); MCHC 34.3 g/dl (32.0-36.0); MEAN CELL VOLUME 91.3 fl (80-96); MEAN PLT VOLUME 10.6 fl (7.5-11.1); MONO % 5.4 % (3.8-10.2); NEUT % 88.5 % (42.8-82.8); PLATELET COUNT 195 K/MM3 (134-434); RBC 4.48 M/mm3 (3.60-5.2); RDW 13.5 % (11.6-15.6); WHITE BLOOD COUNT 8.6 K/mm3 (4.0-10.0)
[2019-01-02] MEDS ORDERED: METOCLOPRAMIDE HCL INJECTION 10 MG/2 ML VIAL IVPUSH ONE (09:28)
[2019-01-02] MEDS ORDERED: METOCLOPRAMIDE HCL INJECTION 10 MG/2 ML VIAL ONE (09:29)
[2019-01-02 10:03] LABS: ALBUMIN 3.9 g/dl (3.4-5.0); BILIRUBIN,TOTAL 0.7 mg/dL (0.2-1); BLOOD UREA NITROGEN 7.8 mg/dL (7-18); CALCIUM 9.3 mg/dL (8.5-10.1); CREATININE 0.9 mg/dL (0.55-1.3); TOT PROT 7.4 g/dl (6.4-8.2)
[2019-01-02] MEDS ORDERED: LORazepam 2 MG/ML SDV VIAL ONE (11:08)
--- NOTE | 2019-01-02 13:37 | CON.GI ---
Consult Consult Specialty:: GI: For Dr. Del Valle who resumes care 01/04 Referred by:: Dr. Mccrary Reason for Consultation:: vomiting - History of Present Illness Chief Complaint: Left flank/back pain and vomiting History of Present Illness: 23F admitted for evaluation of left back pain / flank pain and vomiting. The vomiting was descriebd by her mother as Cynthia was quite somnolent. most questions were answered by and history obtained from her mother. Cynthia has had multiple CT scans from 07/12 revealing a left sided ureteral stones that seems to be migrating. It was proximal on CT scan 07/12, in distal left ureter on CT scan 12/25 and now at UV junction on CT scan scan yesterday. She underwent gastric sleeve surgery 08/[address] Ancelmo Amanda. It looks as though he performed EGD preoperatively. Biopsies revealed h. pylori. Her mother is uncertain if Cynthia was treated. She states that Cynthia follows with Dr. Del Valle, who performed a presurgery EGD. Per her mother, he was planning on performing another one postoperatively. An UGIS performd postoperatively revealed normal gastric sleeve anatomy. Currently, Cynthia is not vomiting. She appears to be in no distress and resting comfortably. - History Source History Provided By: Family Member, Medical Record - Past Medical History Pulmonary: Yes: Asthma ...LMP: 07/30/18 - Past Surgical History Past Surgical History: Yes: Bariatric Surgery (S/P Laproscopic gastric sleeve) - Alcohol/Substance Use Hx Alcohol Use: No History of Substance Use: reports: None - Smoking History Smoking history: Never smoked Have you smoked in the past 12 months: No - Social History ADL: Independent Occupation: Works for [employer]: [employer] [address] of : [facility] History of Recent Travel: No Home Medications - Allergies Allergies/Adverse Reactions: Allergies Allergy/AdvReac Type Severity Reaction Status Date / Time ondansetron [From Zofran] AdvReac Verified 01/02/19 13:43 - Home Medications Home Medications: Ambulatory Orders Ondansetron [Zofran *Odt*] 4 mg SL TID PRN #21 od.tablet 09/10/18 Tramadol HCl 50 mg PO BID #4 tablet MDD 2 12/15/18 Ibuprofen [Motrin -] 600 mg PO QID #28 tablet 12/25/18 Ondansetron HCl [Zofran] 4 mg PO Q8H #8 tablet 12/25/18 Tamsulosin HCl [Flomax] 0.4 mg PO DAILY #7 capsule 12/25/18 Tramadol HCl 50 mg PO Q6H #12 tablet MDD 200 mg 12/25/18 Family Medical History Other Family History: Mother: Alive: Ulcerative colitis, IBS-C. Father: Does not know her father. 4 1/2 sisters: healthy. 1 brother: ADHD, otherwise healthy. No children. No family history of colorectal cancer or other GI malignancy Review of Systems - Review of Systems Constitutional: denies: Unintentional Wgt. Loss Gastrointestinal: reports: Nausea, Vomiting. denies: Abdominal Pain, Diarrhea, Vomiting Blood Physical Exam-GI Vital Signs: Vital Signs Temperature 97.9 F 01/02/19 06:06 Pulse Rate 87 01/02/19 06:06 Respiratory Rate 20 01/02/19 06:06 Blood Pressure 139/91 01/02/19 06:06 O2 Sat by Pulse Oximetry (%) 100 01/02/19 06:06 Constitutional: Yes: Calm, Other (Somnolent) Eyes: No: Sclera Icterus Cardiovascular: Yes: Regular Rate and Rhythm Respiratory: Yes: CTA Bilaterally Gastrointestinal Inspection: Yes: Scars (healed trochar scars) ...Auscultate: Yes: Normoactive Bowel Sounds ...Palpate: Yes: Soft. No: Hepatomegaly, Splenomegaly, Tenderness ...Percussion: No: Tympanitic Musculoskeletal: Yes: Back Pain (+ left sided CVA tenderness and TTP left lower flank) Neurological: Yes: Alert, Other (somnolent) Labs: CBC, BMP 01/02/19 08:50 01/02/19 08:50 Problem List - Problems (1) Renal colic on left side Assessment/Plan: Suspect nausea and vomiting secondary to migrating left sided ureteral stone with associated hydronephrosis. Tender on left flank on exam. Currently no vomiting and looks comfortable Advise: Supportive measures / IV hydration per PMD Urology evaluation Advance diet as tolerated and in coordination with any planned urological procedures Dr. Del Valle resumes care 01/04 Code(s): N23 - UNSPECIFIED RENAL COLIC
--- NOTE | 2019-01-02 13:45 | PN ---
Progress Note, Physician Chief Complaint: ABD PAIN, N/V - Current Medication List Current Medications: 23 yo F with a history of Left renal colic, known partially obstructing kidney stone She presents to he ER wit a complaint of intractable vomiting, flank and abdominal pain No fevers or chills No diarrhea No abdominal distention - Objective Vital Signs: Vital Signs Temperature 97.9 F 01/02/19 06:06 Pulse Rate 87 01/02/19 06:06 Respiratory Rate 20 01/02/19 06:06 Blood Pressure 139/91 01/02/19 06:06 O2 Sat by Pulse Oximetry (%) 100 01/02/19 06:06 Constitutional: Yes: Mild Distress Cardiovascular: Yes: Regular Rate and Rhythm Respiratory: Yes: WNL Gastrointestinal: Yes: Soft, Tenderness Genitourinary: Yes: CVA Tenderness - Left, CVA Tenderness - Right, Other Musculoskeletal: Yes: Muscle Weakness Edema: No Wound/Incision: Yes: Clean/Dry Neurological: Yes: WNL Psychiatric: Yes: WNL Labs: CBC, BMP 01/02/19 08:50 01/02/19 08:50 Problem List - Problems (1) Intractable vomiting with nausea Code(s): R11.2 - NAUSEA WITH VOMITING, UNSPECIFIED (2) Renal colic on left side Code(s): N23 - UNSPECIFIED RENAL COLIC (3) Urinary tract obstruction by kidney stone Code(s): N20.0 - CALCULUS OF KIDNEY; N13.8 - OTHER OBSTRUCTIVE AND REFLUX UROPATHY (4) Acute left flank pain Code(s): R10.9 - UNSPECIFIED ABDOMINAL PAIN (5) BMI 40.0-44.9, adult Code(s): Z68.41 - BODY MASS INDEX (BMI) 40.0-44.9, ADULT (6) Morbid obesity due to excess calories Code(s): E66.01 - MORBID (SEVERE) OBESITY DUE TO EXCESS CALORIES (7) Vomiting Code(s): R11.10 - VOMITING, UNSPECIFIED Assessment/Plan CLEAR DIET\GI EVAL ANTIEMETICS RENAL EVAL IVF PAIN CONTROL EVAL
[2019-01-02] MEDS ORDERED: ONDANSETRON 4 MG/2 ML VIAL IVPB PRN (13:47)
[2019-01-02] MEDS: SODIUM CHLORIDE 1,000 ML IV SCH (15:02)
[2019-01-02 15:42] VITALS: BMI 32.1
[2019-01-02] MEDS: ACETAMINOPHEN 1000 MG/100 ML VIAL (NON FORMULARY) IVPB PRN (15:51)
[2019-01-03] MEDS: METOCLOPRAMIDE HCL INJECTION 10 MG/2 ML VIAL IVPUSH PRN ×2 (02:08→10:00)
[2019-01-03] MEDS: SODIUM CHLORIDE 1,000 ML IV SCH ×2 (03:14→14:34)
[2019-01-03] MEDS: ACETAMINOPHEN 1000 MG/100 ML VIAL (NON FORMULARY) IVPB PRN ×2 (05:09→14:30)
[2019-01-03] MEDS: PANTOPRAZOLE 40 MG TABLET (FP) PO SCH (09:24)
--- NOTE | 2019-01-03 15:57 | PN ---
Progress Note, Physician Chief Complaint: L obstructing calculus Nausea/Vomiting History of Present Illness: Previous notes and events reviewed awake and alert NAD complain of L flank pain radiating to LLQ multiple episodes of nausea with bilious vomiting - Current Medication List Current Medications: Active Medications Acetaminophen (Ofirmev Injection -) 1,000 mg IVPB Q6H PRN PRN Reason: PAIN LEVEL 6-10 Last Admin: 01/03/19 14:30 Dose: 1,000 mg Sodium Chloride (Normal Saline -) 1,000 mls @ 100 mls/hr IV ASDIR [facility] Last Admin: 01/03/19 14:34 Dose: 100 mls/hr Metoclopramide HCl (Reglan Injection -) 10 mg IVPUSH Q8H PRN PRN Reason: NAUSEA AND/OR VOMITING Last Admin: 01/03/19 10:00 Dose: 10 mg Pantoprazole Sodium (Protonix -) 40 mg PO DAILY [facility] Last Admin: 01/03/19 09:24 Dose: Not Given - Objective Vital Signs: Vital Signs Temperature 99 F 01/03/19 15:00 Pulse Rate 85 01/03/19 15:00 Respiratory Rate 18 01/03/19 15:00 Blood Pressure 152/97 01/03/19 15:00 O2 Sat by Pulse Oximetry (%) 100 01/02/19 11:00 Constitutional: Yes: No Distress, Calm Eyes: Yes: Conjunctiva Clear HENT: Yes: Atraumatic Cardiovascular: Yes: Regular Rate and Rhythm Respiratory: Yes: Regular, CTA Bilaterally Gastrointestinal: Yes: Normal Bowel Sounds, Soft, Tenderness (llg), Tenderness, Epigastrium Genitourinary: Yes: CVA Tenderness - Left Musculoskeletal: Yes: WNL Extremities: Yes: WNL Edema: No Neurological: Yes: Alert, Oriented Psychiatric: Yes: Alert, Oriented Labs: CBC, BMP 01/02/19 08:50 01/02/19 08:50 Microbiology 01/02/19 06:14 Urine - Urine Clean Catch Urine Culture - Final Normal Urogenital Aysha - ....Imaging Cat Scan: Report Reviewed Problem List - Problems (1) Intractable vomiting with nausea Assessment/Plan: -GI on board -IV hydration -Pantoprazole -Reglan prn -Abd/Pelvic CT scan reviewed -hx of gastric sleeve will consult Dr Amanda Code(s): R11.2 - NAUSEA WITH VOMITING, UNSPECIFIED (2) Urinary tract obstruction by kidney stone Assessment/Plan: -Urology consult -Pain control -Abd/Pelvic CT scan shows 4mm obstructing calculus left UVJ -UC negative -IV hydration -no leukocytosis -low grade fever Code(s): N20.0 - CALCULUS OF KIDNEY; N13.8 - OTHER OBSTRUCTIVE AND REFLUX UROPATHY (3) Acute left flank pain Assessment/Plan: -Urology consult -Pain control -Abd/Pelvic CT scan shows 4mm obstructing calculus left UVJ -UC negative -IV hydration Code(s): R10.9 - UNSPECIFIED ABDOMINAL PAIN Assessment/Plan see problem list dvt ppx
[2019-01-03] MEDS: KETOROLAC TROMETHAMINE 30 MG/1 ML VIAL IVPUSH PRN (17:17)
[2019-01-03] MEDS ORDERED: INSULIN (NOVOLOG) ASPART 100 UNITS/ML 10ML VIAL ONE (18:13)
[2019-01-03] MEDS: LIDOCAINE 5% TOPICAL PATCH TP SCH (18:49)
[2019-01-04] MEDS: METOCLOPRAMIDE HCL INJECTION 10 MG/2 ML VIAL IVPUSH PRN ×2 (03:54→13:32)
[2019-01-04] MEDS: KETOROLAC TROMETHAMINE 30 MG/1 ML VIAL IVPUSH PRN ×2 (03:57→13:31)
[2019-01-04] MEDS ORDERED: LIDOCAINE PATCH REMOVAL MC SCH (06:00)
[2019-01-04] MEDS: ACETAMINOPHEN 1000 MG/100 ML VIAL (NON FORMULARY) IVPB PRN (06:40)
[2019-01-04] MEDS: PANTOPRAZOLE 40 MG TABLET (FP) PO SCH ×2 (09:29→09:30)
--- NOTE | 2019-01-04 10:58 | PN ---
Progress Note, Physician Chief Complaint: patient seen and examined complaining of nausea and vomitting - Current Medication List Current Medications: Active Medications Sodium Chloride (Normal Saline -) 1,000 mls @ 100 mls/hr IV ASDIR [facility] Last Admin: 01/03/19 14:34 Dose: 100 mls/hr Ketorolac Tromethamine (Toradol Injection -) 30 mg IVPUSH Q6H PRN PRN Reason: PAIN LEVEL 4 - 6 Stop: 01/08/19 16:59 Last Admin: 01/04/19 03:57 Dose: 30 mg Lidocaine (Lidoderm Patch -) 1 patch TP DAILY@1800 [facility] Last Admin: 01/03/19 18:49 Dose: 1 patch Metoclopramide HCl (Reglan Injection -) 10 mg IVPUSH Q8H PRN PRN Reason: NAUSEA AND/OR VOMITING Last Admin: 01/04/19 03:54 Dose: 10 mg Miscellaneous (Lidoderm Patch Removal) 1 each MC DAILY@0600 [facility] Last Admin: 01/04/19 06:00 Dose: 1 each Pantoprazole Sodium (Protonix -) 40 mg PO DAILY [facility] Last Admin: 01/04/19 09:30 Dose: Not Given - Objective Vital Signs: Vital Signs Temperature 98.6 F 01/04/19 06:55 Pulse Rate 73 01/04/19 06:55 Respiratory Rate 20 01/04/19 06:55 Blood Pressure 146/86 01/04/19 06:55 O2 Sat by Pulse Oximetry (%) 98 01/04/19 09:00 Constitutional: Yes: Mild Distress Cardiovascular: Yes: Regular Rate and Rhythm, S1, S2 Respiratory: Yes: CTA Bilaterally Gastrointestinal: Yes: Normal Bowel Sounds, Soft Edema: No Neurological: Yes: Alert, Oriented Labs: CBC, BMP 01/02/19 08:50 01/02/19 08:50 Problem List - Problems (1) Intractable vomiting with nausea Assessment/Plan: iv reglan ivf fluids surgical consult h/o gastric sleeve Code(s): R11.2 - NAUSEA WITH VOMITING, UNSPECIFIED (2) Renal colic on left side Assessment/Plan: ivf urology consult pain control Code(s): N23 - UNSPECIFIED RENAL COLIC (3) Urinary tract obstruction by kidney stone Assessment/Plan: 4mm obstructing stone seen in CT scan urology evaluation repeat BMP Code(s): N20.0 - CALCULUS OF KIDNEY; N13.8 - OTHER OBSTRUCTIVE AND REFLUX UROPATHY
[2019-01-04] MEDS: SODIUM CHLORIDE 1,000 ML IV SCH ×2 (11:01→14:38)
[2019-01-04 12:25] LABS: ALBUMIN 3.1 g/dl (3.4-5.0); BILIRUBIN,TOTAL 0.5 mg/dL (0.2-1); BLOOD UREA NITROGEN 6.2 mg/dL (7-18); CALCIUM 8.4 mg/dL (8.5-10.1); POTASSIUM 4.2 mmol/L (3.5-5.1); TOT PROT 6.1 g/dl (6.4-8.2)
[2019-01-04] MEDS ORDERED: PROPOFOL 20 ML ONE (16:32)
[2019-01-04] MEDS ORDERED: SUCCINYLCHOLINE CHLORIDE 200 MG/10 ML SYRINGE ONE (16:32)
[2019-01-04] MEDS ORDERED: ROCURONIUM BROMIDE 50 MG/5 ML SYRINGE ONE (17:05)
--- NOTE | 2019-01-04 17:35 | CONSULT ---
Consult - text type - Consultation Consultation Note: CC: left renaql colic with obstructing left ureteral stone hpi: Patient is a 23 year old female with history of urolithiasis with severe left flank pain and nausea with vomiting. Patient also describes chills and sweats. Patient is unable to maintain a diet and is not well-controlled with analgesis. PE vss; afeb abd-soft, left cvat ct scan reviewed discussed risks and benefits of left ureteroscopy and stone basketing x 25 minutes with family present imp renal colic obstructing right ureteral stone plan patient is emergently taken to the OR due to clinical condition, inablity to maintain a diet, and risk of sepsis and renal injury
[2019-01-04] MEDS: LIDOCAINE 5% TOPICAL PATCH TP SCH (17:38)
--- NOTE | 2019-01-04 17:38 | OP ---
Operative Note - Note: Operative Date: 01/04/19 Pre-Operative Diagnosis: left obstructing ureteral stone Operation: cystoscopy/left retrograde pyelogram/left ureteroscopic laser lithotripsy/left ureteroscopic stone basketing/left ureteral stent placement Findings: impacted 6+ mm left ureteral stone Surgeon: Shahab Perez Anesthesia: General Drains & Tubes with Location: 08/17 left ureteral stent
[2019-01-04] MEDS ORDERED: ONDANSETRON 4 MG/2 ML VIAL IVPUSH PRN (18:43)
[2019-01-04] MEDS ORDERED: LACTATED RINGERS SOLUTION 1,000 ML IV SCH (18:45)
--- NOTE | 2019-01-05 10:53 | OP ---
DATE OF OPERATION: 01/04/2019 PREOPERATIVE DIAGNOSIS: Obstructing left ureteral stone. POSTOPERATIVE DIAGNOSIS: Obstructing left ureteral stone. PROCEDURE: Cystoscopy, left retrograde pyelogram, left ureteroscopic laser lithotripsy, left ureteroscopic stone basketing, and left ureteral stent placement. SURGEON: Johnny Thomas MD ANESTHESIA: General. DESCRIPTION OF PROCEDURE: The patient has a history of obstructing left stone. The patient returned to the emergency room on 2 occasions within an 8-day period. The patient is poorly controlled in terms of pain management and has noted chills. Patient is at risk of sepsis and renal injury with an obstructing distal renal stone. Patient also is unable to maintain a diet currently. The patient is brought to the operating room emergently. Patient is placed in a supine position on the operating room table. General anesthesia and antibiotics were administered. At this point, the patient was placed in a dorsal lithotomy position, prepped and draped in the usual sterile manner. Cystoscopy was performed. There was no evidence of stone or neoplasm within the bladder. A retrograde pyelogram is then performed. A high-grade distal obstruction consistent with a stone is noted. At this point, a wire is passed proximally to the kidney. Ureteroscopy is then performed. A 6+-mm impacted distal left ureteral stone is noted. Because of the size of the stone and the position, it is decided to laser lithotripsy the stone in order to reduce ureteral injury. The Holmium laser was used to fragment the stone. A large fragment of stone was then basketed under direct visualization and sent for analysis. The smaller fragments that had been lasered were of no consequence and are left to drain distally without the need for further treatment. At this point, a 6-Turk[place] 24-cm stent is placed utilizing the Seldinger technique. No complications are noted. The patient tolerated this procedure very well. The disposition of the patient is to the recovery room. JOHNNY THOMAS M.D. [id number]
[2019-01-05 15:32] VITALS: BP 136/88; PULSE 73; TEMP 99.3
--- NOTE | 2019-01-05 15:40 | DS ---
Physical Examination Vital Signs: Vital Signs Temperature 99.3 F 01/05/19 14:00 Pulse Rate 73 01/05/19 14:00 Respiratory Rate 18 01/05/19 14:00 Blood Pressure 136/88 01/05/19 14:00 O2 Sat by Pulse Oximetry (%) 98 01/04/19 21:00 Findings/Remarks: Active Medications Generic Name Dose Route Start Last Admin Trade Name Freq PRN Reason Stop Dose Admin Fentanyl 25 mcg 01/04/19 18:43 Sublimaze Injection - IVPUSH Q5M PRN PAIN-PACU ORDER X 4 DOSES ONLY Lactated Ringer's 1,000 mls @ 125 mls/hr 01/04/19 18:45 01/04/19 18:58 Lactated Ringers Solution IV 125 mls/hr ASDIR CONSTANTINO Administration Ondansetron HCl 4 mg 01/04/19 18:43 Zofran Injection IVPUSH Q6H PRN NAUSEA AND/OR VOMITING Microbiology 01/02/19 06:14 Urine - Urine Clean Catch Urine Culture - Final Normal Urogenital Aysha Constitutional: Yes: No Distress, Calm Eyes: Yes: Conjunctiva Clear HENT: Yes: Atraumatic Cardiovascular: Yes: Regular Rate and Rhythm Respiratory: Yes: Regular, CTA Bilaterally Gastrointestinal: Yes: Normal Bowel Sounds, Soft, Abdomen, Obese Musculoskeletal: Yes: WNL Extremities: Yes: WNL Edema: No Neurological: Yes: Alert, Oriented Psychiatric: Yes: Alert, Oriented Labs: CBC, BMP 01/02/19 08:50 01/04/19 11:15 Discharge Summary Problems reviewed: Yes Reason For Visit: URINARY TRACT OBSTRUCTION DUE TO KIDNEY STONE/ Current Active Problems Intractable vomiting with nausea (Acute) Renal colic on left side (Acute) Urinary tract obstruction by kidney stone (Acute) Hospital Course: 23 yo F with a history of Left renal colic, known partially obstructing kidney stone She presents to he ER wit a complaint of intractable vomiting, flank and abdominal pain No fevers or chills No diarrhea No abdominal distention While in patient evaluated by Urology and had cystocopy and left retrograde pylogram with no adverse effects. Patient states abdominal pain and flank pain is better. Complaints of mild dysuria but will be following up with Urology as outpatient. Goals: follow up with PCP Dr Mccrary follow up [facility] Urology Dr Perez Condition: Stable - Instructions Diet, Activity, Other Instructions: Follow up with PMD in 1 week follow up with Urologist Dr Perez in 1 week continue with medication as prescribed return to ER if develop severe pain, respiratory distress, chest pain Referrals: Shahab Perez MD [Staff Physician] - Nona Mccrary MD [Primary Care Provider] - Disposition: HOME - Home Medications Comprehensive Discharge Medication List: Ambulatory Orders Ondansetron [Zofran *Odt*] 4 mg SL TID PRN #21 od.tablet 09/10/18 Tramadol HCl 50 mg PO BID #4 tablet MDD 2 12/15/18 Ibuprofen [Motrin -] 600 mg PO QID #28 tablet 12/25/18 Ondansetron HCl [Zofran] 4 mg PO Q8H #8 tablet 12/25/18 Tamsulosin HCl [Flomax -] 0.4 mg PO DAILY #7 capsule 12/25/18 Tramadol HCl 50 mg PO Q6H #12 tablet MDD 200 mg 12/25/18 Lidocaine 5% Patch [Lidoderm -] 1 patch TP DAILY@1800 #30 patch 01/05/19 Pantoprazole Sodium [Protonix -] 40 mg PO DAILY #30 tablet.ec 01/05/19
--- NOTE | 2019-01-06 14:56 | PATH ---
Surgical Pathology Report Patient Name: TAJ COLON Med. Rec. #: [id number] /Age/Gender: 1995 (Age: 23) / F Account: [id number] Location: [facility] MED/SURG Taken: 01/04/2019 Received: 01/05/2019 Reported: 01/06/2019 Physicians: Shahab Perez Specimen(s) Received LEFT UTERINE STONE Clinical History Left ureteral stone Final Diagnosis URETERAL STONE, LEFT, LASER LITHOTRIPSY: URETEROLITHIASIS. MACROSCOPIC DIAGNOSIS. Electronically Signed Joana Lomeli M.D. Gross Description Received fresh labeled "left ureteral stone," is a 0.4 cm in greatest dimension aquino-becker, irregular calculus which is sent for chemical analysis. /01/05/201901/05/2019
[2019-01-12 14:10] LABS: CA OXALATE MONOHYDR. 75 % (.)
== END 2019-01-05 16:07 | disposition home or self-care (01) | DRG 446 ==
LOC: JER 05:51 → JERBED 12:25 → J8W 14:46
PROVIDERS: ADMIT Family Medicine; ATTEND Family Medicine
PROC: 0TC78ZZ Extirpation of Matter from Left Ureter, Via Natural or Artificial Opening Endoscopic (ICD-10-PCS; principal; 2019-01-04 15:00)
PROC: 0T778DZ Dilation of Left Ureter with Intraluminal Device, Via Natural or Artificial Opening Endoscopic (ICD-10-PCS; 2019-01-04 15:00)
DX: N20.1 Calculus of ureter (principal); N13.8 Other obstructive and reflux uropathy; E66.8 Other obesity; Z68.32 Body mass index [BMI] 32.0-32.9, adult; Z98.84 Bariatric surgery status
CPT/HCPCS: 36415; 74177-TC; 80053; 81003; 82360; 83690; 84703; 85025; 87086; 88300-TC; 94760; 99282-25; J0131; J7030

== ENCOUNTER 2020-01-14 16:22 | Emergency (ER) | payer OTHER ==
[2020-01-14 16:41] VITALS: BP 111/70; PULSE 88; TEMP 97.9; BMI 29.0
[2020-01-14 18:45] LABS: HCG,QUALITATIVE URINE Negative
[2020-01-14 18:49] LABS: EPI CELLS >36 /uL (0-25.1); HYALINE CASTS 3 /uL (0-3.1); URINE APPEARANCE CLEAR; URINE BACTERIA 1910 /uL (0-1359); URINE BILIRUBIN NEGATIVE (NEGATIVE); URINE COLOR YELLOW; URINE GLUCOSE (UA) NEGATIVE (NEGATIVE); URINE KETONE NEGATIVE (NEGATIVE); URINE LEUK ESTERASE 1+ (NEGATIVE); URINE NITRITE NEGATIVE (NEGATIVE); URINE PROTEIN TRACE (NEGATIVE); URINE RBC 66 /uL (0-23.9); URINE WBC 24 /uL (0-25.8)
[2020-01-14] MEDS ORDERED: CEPHALEXIN MONOHYDRATE 500 MG CAPSULE (UD) PO ONE (19:01)
[2020-01-14] MEDS ORDERED: CEPHALEXIN MONOHYDRATE 500 MG CAPSULE (UD) ONE (19:09)
== END 2020-01-14 19:15 | disposition home or self-care (01) ==
LOC: JERFT 16:22
DX: N76.0 Acute vaginitis (principal); K62.89 Other specified diseases of anus and rectum; N30.00 Acute cystitis without hematuria
CPT/HCPCS: 36415; 81003; 82272; 84703; 87070; 87077; 87086; 87205; 87491; 87591; 87661; 99283-25

== ENCOUNTER 2020-03-22 09:22 | Emergency (ER) | payer OTHER ==
[2020-03-22 09:30] VITALS: BP 111/81; PULSE 73; TEMP 98.1; BMI 29.0
[2020-03-22 11:25] LABS: HCG,QUALITATIVE URINE Negative
[2020-03-22 11:30] LABS: EPI CELLS >36 /uL (0-25.1); HYALINE CASTS 8 /uL (0-3.1); PH,URINE 5.5 (5.0-8.0); URINE APPEARANCE CLOUDY; URINE BACTERIA 2079 /uL (0-1359); URINE BILIRUBIN NEGATIVE (NEGATIVE); URINE COLOR YELLOW; URINE GLUCOSE (UA) NEGATIVE (NEGATIVE); URINE KETONE 1+ (NEGATIVE); URINE LEUK ESTERASE 1+ (NEGATIVE); URINE NITRITE NEGATIVE (NEGATIVE); URINE PROTEIN 1+ (NEGATIVE); URINE RBC 135 /uL (0-23.9); URINE WBC 156 /uL (0-25.8)
== END 2020-03-22 11:01 | disposition home or self-care (01) ==
LOC: JERFT 09:22
DX: Z20.2 Contact with and (suspected) exposure to infections with a predominantly sexual mode of transmission (principal)
CPT/HCPCS: 36415; 81003; 84703; 87491; 87591; 99284-25; C9803; U0003

== ENCOUNTER 2020-03-24 15:41 | Emergency (ER) | payer OTHER | END 2020-03-24 16:04 | disposition home or self-care (01) | LOC: JVIRT 15:41 | DX: U07.1 COVID-19 (principal) | CPT/HCPCS: C9803; G2012-GT; U0003 ==

== ENCOUNTER 2020-08-29 13:14 | Emergency (ER) | payer OTHER ==
[2020-08-29 13:23] VITALS: BP 130/84; PULSE 123; TEMP 97; BMI 29.0
[2020-08-29 15:21] LABS: EPI CELLS 23 /uL (0-25.1); HYALINE CASTS 4 /uL (0-3.1); PH,URINE 5.5 (5.0-8.0); URINE APPEARANCE CLEAR; URINE BACTERIA 164 /uL (0-1359); URINE BILIRUBIN NEGATIVE (NEGATIVE); URINE COLOR DK YELLOW; URINE GLUCOSE (UA) NEGATIVE (NEGATIVE); URINE KETONE 3+ (NEGATIVE); URINE LEUK ESTERASE 1+ (NEGATIVE); URINE NITRITE NEGATIVE (NEGATIVE); URINE PROTEIN 2+ (NEGATIVE); URINE RBC 389 /uL (0-23.9); URINE WBC 24 /uL (0-25.8)
[2020-08-29 15:22] LABS: HCG,QUALITATIVE URINE Negative
== END 2020-08-29 15:55 | disposition home or self-care (01) ==
LOC: JERFT 13:14
DX: N30.00 Acute cystitis without hematuria (principal); N89.8 Other specified noninflammatory disorders of vagina
CPT/HCPCS: 36415; 81003; 84703; 87086; 87491; 87591; 87661; 99283-25

== ENCOUNTER 2020-09-24 23:13 | Emergency (ER) | payer OTHER ==
[2020-09-24 23:28] VITALS: BP 107/70; PULSE 87; TEMP 98; BMI 29.0
== END 2020-09-25 | disposition home or self-care (01) ==
LOC: JER 23:13
DX: Z70.9 Sex counseling, unspecified (principal)
CPT/HCPCS: 99283-25

== ENCOUNTER 2020-11-29 15:28 | Emergency (ER) | payer OTHER ==
[2020-11-29 15:57] VITALS: TEMP 98.4; BMI 28.1
[2020-11-29 17:36] LABS: BASO % 0.3 % (0-2.0); EOS % 0.8 % (0-4.5); HEMATOCRIT 38.9 % (32.4-45.2); HEMOGLOBIN 13.2 GM/dL (10.7-15.3); LYMPH % 32.7 % (8-40); MCH 29.9 pg (25.7-33.7); MCHC 33.9 g/dl (32.0-36.0); MEAN CELL VOLUME 88.3 fl (80-96); MEAN PLT VOLUME 8.7 fl (7.5-11.1); MONO % 8.8 % (3.8-10.2); NEUT % 57.4 % (42.8-82.8); PLATELET COUNT 216 10^3/uL (134-434); RBC 4.41 M/mm3 (3.60-5.2); RDW 14.1 % (11.6-15.6); WHITE BLOOD COUNT 5.8 K/mm3 (4.0-10.0)
[2020-11-29 17:56] LABS: CALCIUM 8.6 mg/dL (8.5-10.1)
[2020-11-29 17:57] LABS: ALBUMIN 3.7 g/dl (3.4-5.0); BLOOD UREA NITROGEN 9.2 mg/dL (7-18)
[2020-11-29 18:00] LABS: CREATININE 0.6 mg/dL (0.55-1.3)
[2020-11-29 18:01] LABS: BILIRUBIN,TOTAL 0.5 mg/dL (0.2-1); TOT PROT 7.3 g/dl (6.4-8.2)
[2020-11-29 18:35] LABS: HCG,QUALITATIVE URINE Negative
[2020-11-29 18:39] LABS: EPI CELLS 28 /uL (0-25.1); HYALINE CASTS 2 /uL (0-3.1); URINE APPEARANCE CLEAR; URINE BACTERIA 399 /uL (0-1359); URINE BILIRUBIN NEGATIVE (NEGATIVE); URINE COLOR YELLOW; URINE GLUCOSE (UA) NEGATIVE (NEGATIVE); URINE KETONE TRACE (NEGATIVE); URINE LEUK ESTERASE 1+ (NEGATIVE); URINE NITRITE NEGATIVE (NEGATIVE); URINE PROTEIN TRACE (NEGATIVE); URINE RBC 67 /uL (0-23.9); URINE WBC 26 /uL (0-25.8)
[2020-11-29 21:13] VITALS: BP 92/71; PULSE 75
[2020-11-29] MEDS ORDERED: METOCLOPRAMIDE HCL INJECTION 10 MG/2 ML VIAL IVPB ONE (21:13)
[2020-11-29] MEDS ORDERED: METOCLOPRAMIDE HCL INJECTION 10 MG/2 ML VIAL ONE (21:21)
== END 2020-11-29 22:29 | disposition home or self-care (01) ==
LOC: JER 15:28
PROC: 3E033GC Introduction of Other Therapeutic Substance into Peripheral Vein, Percutaneous Approach (ICD-10-PCS; principal; 2020-11-29)
DX: N83.201 Unspecified ovarian cyst, right side (principal); K59.00 Constipation, unspecified
CPT/HCPCS: 36415; 74177-TC; 80053; 81003; 83690; 84703; 85025; 87086; 99285-25; Q9967

== ENCOUNTER 2021-01-05 16:48 | Emergency (ER) | payer OTHER ==
[2021-01-05 17:15] VITALS: BP 119/78; PULSE 74; TEMP 98.3; BMI 28.1
[2021-01-05] MEDS ORDERED: predniSONE 20 MG TABLET (UD) PO ONE (17:45)
[2021-01-05] MEDS ORDERED: ALBUTEROL SO4 2.5/IPRATROPIUM 0.5 INH SOL 3 ML VIAL.NEB. NEB ONE ×2 (17:45→17:54)
[2021-01-05] MEDS ORDERED: predniSONE 20 MG TABLET (UD) ONE (17:54)
== END 2021-01-05 18:55 | disposition home or self-care (01) ==
LOC: JER 16:48
PROC: 3E0F7GC Introduction of Other Therapeutic Substance into Respiratory Tract, Via Natural or Artificial Opening (ICD-10-PCS; principal; 2021-01-05)
DX: U07.1 COVID-19 (principal)
CPT/HCPCS: 71046-TC-FY; 87804; 99284-25; C9803; U0003; U0005

== ENCOUNTER 2021-01-19 15:09 | Emergency (ER) | payer OTHER ==
[2021-01-19 15:37] VITALS: BP 131/82; PULSE 78; TEMP 97.9; BMI 28.1
== END 2021-01-19 16:41 | disposition home or self-care (01) ==
LOC: JER 15:09
DX: J06.9 Acute upper respiratory infection, unspecified (principal); Z11.52 Encounter for screening for COVID-19
CPT/HCPCS: 99283-25; C9803; U0003; U0005

== ENCOUNTER 2021-02-21 15:49 | Emergency (ER) | payer OTHER ==
[2021-02-21 16:23] VITALS: BP 130/78; PULSE 96; TEMP 98.9; BMI 26.3
[2021-02-21] MEDS ORDERED: predniSONE 20 MG TABLET (UD) PO ONE (18:35)
[2021-02-21] MEDS ORDERED: predniSONE 20 MG TABLET (UD) ONE (18:57)
[2021-02-21] MEDS ORDERED: ALBUTEROL SO4 2.5/IPRATROPIUM 0.5 INH SOL 3 ML VIAL.NEB. NEB ONE (18:58)
[2021-02-22 20:07] LABS: SARS-CoV-2 NAA Not Detected (Not Detected)
== END 2021-02-21 19:30 | disposition home or self-care (01) ==
LOC: JER 15:49
DX: J45.901 Unspecified asthma with (acute) exacerbation (principal); J06.9 Acute upper respiratory infection, unspecified
CPT/HCPCS: 71046-TC-FY; 99284-25; C9803-CS; U0003; U0005

== ENCOUNTER 2021-04-01 15:18 | Emergency (ER) | payer OTHER ==
[2021-04-01 15:38] VITALS: BP 94/69; PULSE 71; TEMP 98; BMI 29.0
== END 2021-04-01 17:12 | disposition home or self-care (01) ==
LOC: JERFT 15:18 → JER 15:18 → JERFT 17:12
DX: N93.9 Abnormal uterine and vaginal bleeding, unspecified (principal)
CPT/HCPCS: 99283-25

== ENCOUNTER 2021-06-13 16:50 | Emergency (ER) | payer OTHER ==
[2021-06-13 17:45] VITALS: BP 115/66; TEMP 100.4; BMI 29.0
[2021-06-13] MEDS ORDERED: ACETAMINOPHEN 500 MG TABLET (FP) PO ONE (18:05)
[2021-06-13] MEDS ORDERED: KETOROLAC TROMETHAMINE 30 MG/1 ML VIAL IM ONE (18:05)
[2021-06-13] MEDS ORDERED: KETOROLAC TROMETHAMINE 30 MG/1 ML VIAL ONE (18:06)
[2021-06-13] MEDS ORDERED: ACETAMINOPHEN 500 MG TABLET (FP) ONE (18:06)
[2021-06-13] MEDS ORDERED: DEXAMETHASONE LIQUID 0.5 MG/5 ML PO ONE (18:20)
[2021-06-13] MEDS ORDERED: ALBUTEROL SO4 2.5/IPRATROPIUM 0.5 INH SOL 3 ML VIAL.NEB. NEB ONE (18:39)
[2021-06-13] MEDS ORDERED: DEXAMETHASONE SOD PHOSPHATE 10 MG/1 ML VIAL ONE (18:39)
[2021-06-13] MEDS: ALBUTEROL SO4 2.5/IPRATROPIUM 0.5 INH SOL 3 ML VIAL.NEB. NEB SCH (18:47)
[2021-06-13 21:00] VITALS: PULSE 115
[2021-06-14 12:09] LABS: SARS-CoV-2 NAA Not Detected (Not Detected)
== END 2021-06-13 21:00 | disposition home or self-care (01) ==
LOC: JER 16:50
PROC: 3E023GC Introduction of Other Therapeutic Substance into Muscle, Percutaneous Approach (ICD-10-PCS; principal; 2021-06-13)
PROC: 3E0F7GC Introduction of Other Therapeutic Substance into Respiratory Tract, Via Natural or Artificial Opening (ICD-10-PCS; 2021-06-13)
DX: J09.X2 Influenza due to identified novel influenza A virus with other respiratory manifestations (principal)
CPT/HCPCS: 87651; 87804; 99284-25; C9803-CS; U0003; U0005

== ENCOUNTER 2021-10-19 20:48 | Emergency (ER) | payer OTHER ==
[2021-10-19 20:53] VITALS: BP 111/78; PULSE 82; RESP 18; TEMP 98.2; BMI 31.3
[2021-10-19] MEDS ORDERED: SODIUM CHLORIDE 0.9% 500 ML INFUS.BAG IV ONE (20:56)
[2021-10-19 21:52] LABS: BASO % 0.4 % (0-2.0); EOS % 1.2 % (0-4.5); HEMATOCRIT 40.2 % (32.4-45.2); HEMOGLOBIN 13.5 GM/dL (10.7-15.3); LYMPH % 43.1 % (8-40); MCH 29.7 pg (25.7-33.7); MCHC 33.6 g/dl (32.0-36.0); MEAN CELL VOLUME 88.3 fl (80-96); MEAN PLT VOLUME 8.4 fl (7.5-11.1); MONO % 8.7 % (3.8-10.2); NEUT % 46.6 % (42.8-82.8); PLATELET COUNT 200 10^3/uL (134-434); RBC 4.55 M/mm3 (3.60-5.2); RDW 14.1 % (11.6-15.6); WHITE BLOOD COUNT 5.4 K/mm3 (4.0-10.0)
[2021-10-19 22:15] LABS: ALBUMIN 3.8 g/dl (3.4-5.0); BLOOD UREA NITROGEN 12.4 mg/dL (7-18); CALCIUM 8.8 mg/dL (8.5-10.1)
[2021-10-19 22:18] LABS: CREATININE 0.6 mg/dL (0.55-1.3)
[2021-10-19] MEDS ORDERED: MECLIZINE HCL 25 MG TABLET (FP) PO ONE ×2 (22:19→23:19)
[2021-10-19 22:20] LABS: BILIRUBIN,TOTAL 0.2 mg/dL (0.2-1); TOT PROT 7.3 g/dl (6.4-8.2)
[2021-10-19] MEDS ORDERED: MECLIZINE HCL 25 MG TABLET (FP) ONE ×2 (22:24→23:20)
== END 2021-10-19 23:26 | disposition home or self-care (01) ==
LOC: JER 20:48
DX: R42 Dizziness and giddiness (principal)
CPT/HCPCS: 36415; 70450-TC; 80053; 85025; 93005; 93010; 99285-25

== ENCOUNTER 2022-03-15 12:43 | Emergency (ER) | payer OTHER ==
[2022-03-15 12:55] VITALS: BP 133/64; PULSE 104; RESP 18; TEMP 97.6; BMI 37.5
[2022-03-15] MEDS ORDERED: ACETAMINOPHEN 325 MG TABLET (FP) PO ONE (14:35)
[2022-03-15 14:40] LABS: BASO % 0.1 % (0-2.0); EOS % 0.6 % (0-4.5); HEMATOCRIT 36.6 % (32.4-45.2); HEMOGLOBIN 12.2 GM/dL (10.7-15.3); LYMPH % 19.5 % (8-40); MCH 29.3 pg (25.7-33.7); MCHC 33.2 g/dl (32.0-36.0); MEAN CELL VOLUME 88.2 fl (80-96); MEAN PLT VOLUME 8.7 fl (7.5-11.1); MONO % 8.7 % (3.8-10.2); NEUT % 71.1 % (42.8-82.8); PLATELET COUNT 204 10^3/uL (134-434); RBC 4.15 M/mm3 (3.60-5.2); RDW 13.4 % (11.6-15.6); WHITE BLOOD COUNT 7.2 K/mm3 (4.0-10.0)
[2022-03-15 14:59] LABS: EPI CELLS 14 /uL (0-25.1); HYALINE CASTS 0 /uL (0-3.1); PH,URINE 5.5 (5.0-8.0); URINE APPEARANCE CLEAR; URINE BACTERIA 147 /uL (0-1359); URINE BILIRUBIN NEGATIVE (NEGATIVE); URINE COLOR YELLOW; URINE GLUCOSE (UA) 1+ (NEGATIVE); URINE KETONE TRACE (NEGATIVE); URINE LEUK ESTERASE NEGATIVE (NEGATIVE); URINE NITRITE NEGATIVE (NEGATIVE); URINE PROTEIN 2+ (NEGATIVE); URINE RBC 86.6 /uL (0-23.9); URINE UROBILINOGEN 0.2 mg/dL (0.2-1.0); URINE WBC 11 /uL (0-25.8)
[2022-03-15 15:00] LABS: CALCIUM 8.7 mg/dL (8.5-10.1)
[2022-03-15 15:01] LABS: BLOOD UREA NITROGEN 8.3 mg/dL (7-18)
[2022-03-15 15:04] LABS: CREATININE 0.4 mg/dL (0.55-1.3)
[2022-03-15 15:06] LABS: BILIRUBIN,TOTAL 0.2 mg/dL (0.2-1); TOT PROT 6.6 g/dl (6.4-8.2)
== END 2022-03-15 17:36 | disposition home or self-care (01) ==
LOC: JERFT 12:43 → JER 12:43 → JERFT 17:36
DX: O26.891 Other specified pregnancy related conditions, first trimester (principal); R10.84 Generalized abdominal pain; Z3A.09 9 weeks gestation of pregnancy
CPT/HCPCS: 36415; 76815-TC; 80053; 81003; 84702; 85025; 86850; 86900; 86901; 87086; 99284-25

== ENCOUNTER 2023-10-10 12:57 | Emergency (ER) | payer OTHER ==
[2023-10-10 13:09] VITALS: BP 109/77; PULSE 99; RESP 18; TEMP 98.9; BMI 39.1
[2023-10-10] MEDS ORDERED: ACETAMINOPHEN INJECTION 100 ML IVPB ONE (14:23)
[2023-10-10] MEDS ORDERED: METOCLOPRAMIDE HCL INJECTION 10 MG/2 ML VIAL ONE (14:23)
[2023-10-10] MEDS: ACETAMINOPHEN 1000 MG/100 ML BAG IVPB ONE (14:35)
[2023-10-10] MEDS: METOCLOPRAMIDE HCL INJECTION 10 MG/2 ML VIAL IVPB ONE (14:35)
[2023-10-10] MEDS: SODIUM CHLORIDE 0.9% 500 ML INFUS.BAG IV ONE (14:36)
[2023-10-10 15:12] LABS: BASO % 0.5 % (0-2.0); EOS % 1.8 % (0-4.5); HEMATOCRIT 34.3 % (32.4-45.2); LYMPH % 33.5 % (8-40); MCH 24.5 pg (25.7-33.7); MCHC 32.2 g/dl (32.0-36.0); MEAN CELL VOLUME 76.1 fl (80-96); MEAN PLT VOLUME 8.7 fl (7.5-11.1); MONO % 7.4 % (3.8-10.2); NEUT % 56.8 % (42.8-82.8); PLATELET COUNT 279 10^3/uL (134-434); RDW 16.4 % (11.6-15.6); WHITE BLOOD COUNT 5.2 K/mm3 (4.0-10.0)
[2023-10-10 15:30] LABS: POTASSIUM 4.3 mmol/L (3.5-5.1)
[2023-10-10 15:32] LABS: CALCIUM 8.7 mg/dL (8.5-10.1)
[2023-10-10 15:33] LABS: ALBUMIN 3.5 g/dl (3.4-5.0); BLOOD UREA NITROGEN 7.1 mg/dL (7-18); MAGNESIUM 2.2 mg/dL (1.8-2.4)
[2023-10-10 15:36] LABS: CREATININE 0.6 mg/dL (0.55-1.3)
[2023-10-10 15:38] LABS: BILIRUBIN,TOTAL 0.2 mg/dL (0.2-1); TOT PROT 7.3 g/dl (6.4-8.2)
[2023-10-10] MEDS ORDERED: ESCITALOPRAM OXALATE 10 MG TABLET ONE (16:04)
[2023-10-10] MEDS: ESCITALOPRAM OXALATE 10 MG TABLET PO ONE (16:10)
[2023-10-10] MEDS ORDERED: KETOROLAC TROMETHAMINE 15 MG/ML VIAL ONE (16:34)
[2023-10-10] MEDS: KETOROLAC TROMETHAMINE 15 MG/ML VIAL IVPUSH ONE (16:40)
[2023-10-10 16:43] LABS: EPI CELLS >36 /uL (0-25.1); HCG,QUALITATIVE URINE Negative; HYALINE CASTS 8 /uL (0-3.1); PH,URINE 6.5 (5.0-8.0); URINE APPEARANCE CLOUDY; URINE BACTERIA 3606 /uL (0-1359); URINE BILIRUBIN NEGATIVE (NEGATIVE); URINE COLOR YELLOW; URINE GLUCOSE (UA) NEGATIVE (NEGATIVE); URINE KETONE TRACE (NEGATIVE); URINE LEUK ESTERASE 1+ (NEGATIVE); URINE NITRITE NEGATIVE (NEGATIVE); URINE PROTEIN 2+ (NEGATIVE); URINE WBC 768 /uL (0-25.8)
[2023-10-10 16:45] LABS: URINE RBC 118.2 /uL (0-23.9)
[2023-10-10 16:49] LABS: OPIATES, URI NEGATIVE (NEGATIVE); PHENCYCLIDINE,URINE NEGATIVE (NEGATIVE)
[2023-10-10 16:50] LABS: URINE BARBITURATES NEGATIVE (NEGATIVE)
[2023-10-10 17:05] LABS: COCAINE, UR NEGATIVE (NEGATIVE); METHADONE, UR NEGATIVE (NEGATIVE); URINE AMPHETAMINES NEGATIVE (NEGATIVE); URINE BENZODIAZEPINES NEGATIVE (NEGATIVE)
== END 2023-10-10 16:54 | disposition left against medical advice (07) ==
LOC: JER 12:57
PROC: 3E033NZ Introduction of Analgesics, Hypnotics, Sedatives into Peripheral Vein, Percutaneous Approach (ICD-10-PCS; principal; 2023-10-10)
PROC: 3E033GC Introduction of Other Therapeutic Substance into Peripheral Vein, Percutaneous Approach (ICD-10-PCS; 2023-10-10)
DX: R53.83 Other fatigue (principal); R51.9 Headache, unspecified; N30.00 Acute cystitis without hematuria
CPT/HCPCS: 36415; 80053; 80307; 81003; 83735; 84443; 84484; 84703; 85025; 87086; 87186; 93005; 93010; 99284-25; J0131